=== PATIENT | male | born 1945 | race Caucasian/White ===

== ENCOUNTER 2017-03-08 04:45 | Emergency (ER) | payer MEDICARE, BC ==
--- NOTE | 2017-03-08 04:57 | EDM.PDOC ---
ED HPI GENERAL MEDICAL PROBLEM - General Chief Complaint: Respiratory Problem Stated Complaint: Respiratory distress Time Seen by Provider: 03/08/17 04:45 Source of Information: Reports: Patient, EMS Notes Reviewed, Family, RN, RN Notes Reviewed History Limitations: Reports: No Limitations - History of Present Illness INITIAL COMMENTS - FREE TEXT/NARRATIVE: Patient is brought to the emergency room at [facility] via EMS for worsening shortness of breath. The patient's symptoms began last evening and have progressively gotten worse. The patient awoke about an hour and a half ago and could not catch his breath, therefore EMS was called. The patient arrived on 8 L of oxygen satting in the low 90s. According to the EMS when they arrived the patient's oxygen saturation was in the low 70s. The patient has a long- standing history of COPD exacerbations. The patient states that he feels very nauseated and sick to his stomach. The patient denies any diarrhea. The patient states he's had a productive cough over the past couple of days. The patient states he feels very cold. 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 - Related Data Allergies Allergy/AdvReac Type Severity Reaction Status Date / Time hydromorphone HCl Allergy Cannot Verified 03/08/17 04:54 [From Dilaudid] Remember oxycodone HCl Allergy Cannot Verified 03/08/17 04:54 [From OxyContin] Remember pentazocine lactate AdvReac Nausea and Verified 03/08/17 04:54 [From Talwin] Vomiting tramadol HCl [From Ultram] AdvReac Delusions Verified 03/08/17 04:54 Home Meds: Home Meds Albuterol Sulfate [Albuterol Sulfate HFA] 1 - 2 puff IH Q4H PRN 03/11/14 [ History] Clobetasol [Clobetasol Propionate 0.05%] 45 gm TOP BID PRN 03/11/14 [History] Cyanocobalamin (Vitamin B-12) [Vitamin B-12] 1,000 mcg IM Q30D 03/11/14 [History ] Fluticasone/Salmeterol [Advair 250-50 Diskus] 1 puff INH BID 03/11/14 [History] Ibuprofen [Advil] 200 mg PO PRN 03/11/14 [History] Magnesium Gluconate 3,000 gm MC DAILY 03/11/14 [History] Omeprazole [Prilosec] 20 mg PO BID PRN 03/11/14 [History] Tiotropium [Spiriva] 18 mcg INH DAILY 03/11/14 [History] aMILoride [Midamor] 5 mg PO DAILY 03/11/14 [History] predniSONE 20 mg PO DAILY PRN 03/11/14 [History] traZODone 50 mg PO BEDTIME 03/11/14 [History] Social & Family History - Tobacco Use Smoking Status *Q: Never Smoker Years of Tobacco use: 40 Used Tobacco, but Quit: Yes Month Tobacco Last Used: 7 Second Hand Smoke Exposure: Yes - Alcohol Use Days Per Week of Alcohol Use: 1 Number of Drinks Per Day: 1 Total Drinks Per Week: 1 - Recreational Drug Use Recreational Drug Use: No ED ROS GENERAL - Review of Systems Review Of Systems: See Below Constitutional: Reports: Fever, Chills, Weakness HEENT: Reports: No Symptoms Respiratory: Reports: Shortness of Breath, Cough, Sputum. Denies: Hemoptysis Cardiovascular: Reports: Chest Pain, Dyspnea on Exertion. Denies: Palpitations GI/Abdominal: Reports: Nausea, Vomiting. Denies: Abdominal Pain, Diarrhea Skin: Reports: No Symptoms Neurological: Reports: No Symptoms ED EXAM, GENERAL - Physical Exam Exam: See Below Exam Limited By: No Limitations General Appearance: Alert, Anxious, Thin, Cachetic Respiratory/Chest: Respiratory Distress, Decreased Breath Sounds, Prolonged Expiration, Other (on CPAP) Cardiovascular: Normal Peripheral Pulses, No Edema, Tachycardia Peripheral Pulses: 2+: Radial (L), Radial (R) GI/Abdominal: Soft, Non-Tender, Abnormal Bowel Sounds (Hypoactive) Neurological: Alert, Oriented Psychiatric: Anxious Skin Exam: Dry, Intact, No Rash, Cool, Pallor EKG INTERPRETATION EKG Date: 03/08/17 Time: 06:10 Rhythm: NSR Rate (Beats/Min): 103 [place]: Other (Indeterminate axis) P-Wave: Present QRS: RBBB ST-T: Normal QT: Normal SC/PQ Interval: 0.14 Comparison: No Change EKG Interpretation Comments: 1. Sinus Tachycardia with frequent supraventricular premature complexes 2. Indeterminate axis 3. Incomplete RBBB Course - Vital Signs Last Recorded V/S: Last Vital Signs Temp 37.3 C 03/08/17 04:50 Pulse 124 H 03/08/17 04:50 Resp 30 H 03/08/17 04:50 BP 188/118 H 03/08/17 04:50 Pulse Ox 84 L 03/08/17 04:50 - Orders/Labs/Meds Orders: Active Orders 24 hr Category Date Time Status BIPAP Adult [RT BiPAP/CPAP] [RC] ASDIRECTED Care 03/08/17 05:47 Active EKG 12 Lead [EKG Documentation Completion] [RC] STAT Care 03/08/17 05:05 Ordered Insert Angulo Catheter [Insert Urinary Catheter] [OM.PC] Care 03/08/17 06:00 Ordered Q24H Urinary Catheter Assessment [RC] ASDIRECTED Care 03/08/17 05:59 Active Chest 1V Frontal [CR] Stat Exams 03/08/17 04:57 Taken CULTURE BLOOD [BC] Stat Lab 03/08/17 05:23 Results CULTURE BLOOD [BC] Stat Lab 03/08/17 05:30 Results Levofloxacin/Dextrose 5%-Water [Levaquin in D5W 750 MG/ Med 03/08/17 05:28 Active 150 ML] 750 mg Premix Bag 1 bag IV ONETIME Sodium Chloride 0.9% [Saline Flush] Med 03/08/17 05:00 Active 10 ml FLUSH ASDIRECTED PRN Blood Culture x2 Reflex Set [OM.PC] Stat Oth 03/08/17 04:58 Ordered Peripheral IV Insertion Adult [OM.PC] Routine Oth 03/08/17 05:00 Ordered Medication Orders Levofloxacin/Dextrose 750 mg/ (Premix) 150 mls @ 100 mls/hr IV ONETIME ONE Stop: 03/08/17 06:57 Last Admin: 03/08/17 05:41 Dose: 100 mls/hr Sodium Chloride (Saline Flush) 10 ml FLUSH ASDIRECTED PRN PRN Reason: Keep Vein Open Labs: Laboratory Tests 03/08/17 03/08/17 03/08/17 Range/Units 05:30 05:30 05:30 WBC 4.4 (4.0-10.0) x10^3/uL RBC 4.45 L (4.5-6.0) x10^6/uL Hgb 14.0 (14.0-18.0) g/dL Hct 43.7 (40.0-52.0) % MCV 98.2 H (78.0-93.0) fL MCH 31.5 (26.0-32.0) pg MCHC 32.0 (32.0-36.0) g/dL RDW Coeff of Aren 14.3 (10.0-15.0) % Plt Count 123 L (130-400) x10^3/uL Add Manual Diff Yes Neutrophils % (Manual) 77 (50-80) % Band Neutrophils % 7 H (0-6) % Lymphocytes % (Manual) 4 L (25-50) % Monocytes % (Manual) 6 (2-11) % Eosinophils % (Manual) 4 (0-4) % Basophils % (Manual) 1 (0-1) % Metamyelocytes % 1 H (0) % Toxic Granulation 2+ moderate H Platelet Estimate Decreased L Giant Platelets Rare H Polychromasia Rare POC ABG pH (7.35-7.45) POC ABG pCO2 (35-45) mmHG POC ABG pO2 (80-105) mmHG POC ABG HCO3 (22-26) mmol/L POC ABG Total CO2 (23-27) mmol/L POC ABG O2 Sat (95-98) % POC ABG Base Excess (-2-3) mmol/L POC FiO2 Sodium 138 (136-145) mmol/L Potassium 3.6 (3.5-5.1) mmol/L Chloride 101 (98-107) mmol/L Carbon Dioxide 35 H (21-32) mmol/L BUN 15 (7-18) mg/dL Creatinine 1.3 (0.70-1.30) mg/dL Est Cr Clr Drug Dosing TNP Estimated GFR (MDRD) 55 Glucose 110 H (74-106) mg/dL Lactic Acid 1.0 (0.4-2.0) mmol/L Calcium 8.1 L (8.5-10.1) mg/dL Corrected Calcium 8.58 (8.5-10.1) mg/dL Total Bilirubin 0.6 (0.2-1.0) mg/dL AST 24 (15-37) U/L ALT 25 (16-63) U/L Alkaline Phosphatase 70 (46-116) U/L Creatine Kinase (39-308) U/L Creatine Kinase Index (0.0-4.0) % CK-MB (CK-2) (0.0-3.6) ng/mL Troponin I (<=0.056) ng/mL C-Reactive Protein 0.4 (<=0.9) mg/dL Total Protein 7.1 (6.4-8.2) g/dL Albumin 3.4 (3.4-5.0) g/dL Globulin 3.7 Albumin/Globulin Ratio 0.92 POC Result Comm Urine Color (YELLOW) Urine Appearance (CLEAR) Urine pH (5.0-8.0) Ur Specific [place] Urine Protein (NEGATIVE) mg/dL Urine Glucose (UA) (NEGATIVE) mg/dL Urine Ketones (NEGATIVE) mg/dL Urine Occult Blood (NEGATIVE) Urine Nitrite (NEGATIVE) Urine Bilirubin (NEGATIVE) Urine Urobilinogen (0.2) EU/dL Ur Leukocyte Esterase (NEGATIVE) Urine RBC (NOT SEEN) /HPF Urine WBC (NOT SEEN) /HPF Ur Squamous Epith Cells (NEGATIVE) /HPF Urine Bacteria (NEGATIVE) /HPF Urine Mucus (NEGATIVE) /LPF 03/08/17 03/08/17 03/08/17 Range/Units 05:30 05:49 06:22 WBC (4.0-10.0) x10^3/uL RBC (4.5-6.0) x10^6/uL Hgb (14.0-18.0) g/dL Hct (40.0-52.0) % MCV (78.0-93.0) fL MCH (26.0-32.0) pg MCHC (32.0-36.0) g/dL RDW Coeff of Aren (10.0-15.0) % Plt Count (130-400) x10^3/uL Add Manual Diff Neutrophils % (Manual) (50-80) % Band Neutrophils % (0-6) % Lymphocytes % (Manual) (25-50) % Monocytes % (Manual) (2-11) % Eosinophils % (Manual) (0-4) % Basophils % (Manual) (0-1) % Metamyelocytes % (0) % Toxic Granulation Platelet Estimate Giant Platelets Polychromasia POC ABG pH 7.288 L* (7.35-7.45) POC ABG pCO2 68 H* (35-45) mmHG POC ABG pO2 85 (80-105) mmHG POC ABG HCO3 32 H (22-26) mmol/L POC ABG Total CO2 34 H (23-27) mmol/L POC ABG O2 Sat 95 (95-98) % POC ABG Base Excess 6 H (-2-3) mmol/L POC FiO2 0.52 Sodium (136-145) mmol/L Potassium (3.5-5.1) mmol/L Chloride (98-107) mmol/L Carbon Dioxide (21-32) mmol/L BUN (7-18) mg/dL Creatinine (0.70-1.30) mg/dL Est Cr Clr Drug Dosing Estimated GFR (MDRD) Glucose (74-106) mg/dL Lactic Acid (0.4-2.0) mmol/L Calcium (8.5-10.1) mg/dL Corrected Calcium (8.5-10.1) mg/dL Total Bilirubin (0.2-1.0) mg/dL AST (15-37) U/L ALT (16-63) U/L Alkaline Phosphatase (46-116) U/L Creatine Kinase 109 (39-308) U/L Creatine Kinase Index 1.6 (0.0-4.0) % CK-MB (CK-2) 1.7 (0.0-3.6) ng/mL Troponin I < 0.017 (<=0.056) ng/mL C-Reactive Protein (<=0.9) mg/dL Total Protein (6.4-8.2) g/dL Albumin (3.4-5.0) g/dL Globulin Albumin/Globulin Ratio POC Result Comm Called critical res Urine Color Light yellow (YELLOW) Urine Appearance Clear (CLEAR) Urine pH 5.5 (5.0-8.0) Ur Specific [place] 1.015 Urine Protein Negative (NEGATIVE) mg/dL Urine Glucose (UA) Negative (NEGATIVE) mg/dL Urine Ketones Negative (NEGATIVE) mg/dL Urine Occult Blood Negative (NEGATIVE) Urine Nitrite Negative (NEGATIVE) Urine Bilirubin Negative (NEGATIVE) Urine Urobilinogen 0.2 (0.2) EU/dL Ur Leukocyte Esterase Negative (NEGATIVE) Urine RBC 0-5 (NOT SEEN) /HPF Urine WBC 0-5 (NOT SEEN) /HPF Ur Squamous Epith Cells Rare (NEGATIVE) /HPF Urine Bacteria Not seen (NEGATIVE) /HPF Urine Mucus Not seen (NEGATIVE) /LPF Meds: Medications Generic Name Dose Route Start Last Admin Trade Name Freq PRN Reason Stop Dose Admin Levofloxacin/Dextrose 750 mg/ 150 mls @ 100 mls/hr 03/08/17 05:28 03/08/17 05 :41 Premix IV 03/08/17 06:57 100 mls/hr ONETIME ONE Administration Sodium Chloride 10 ml 03/08/17 05:00 Saline Flush FLUSH ASDIRECTED PRN Keep Vein Open Discontinued Medications Generic Name Dose Route Start Last Admin Trade Name Freq PRN Reason Stop Dose Admin Sodium Chloride 1,000 mls @ 999 mls/hr 03/08/17 05:00 03/08/17 05:20 Normal Saline IV 03/08/17 06:00 999 mls/hr ONETIME ONE Administration Azithromycin 500 mg/ Sodium 250 mls @ 250 mls/hr 03/08/17 05:27 Chloride IV 03/08/17 06:26 ONETIME ONE Levalbuterol HCl 1.25 mg 03/08/17 05:00 03/08/17 05:13 Xopenex NEB 03/08/17 05:01 1.25 mg ONETIME ONE Administration Lorazepam 1 mg 03/08/17 05:08 Ativan IVPUSH 03/08/17 05:09 ONETIME ONE Methylprednisolone Sodium Succinate 125 mg 03/08/17 05:00 03/08/17 05:25 Solu-Medrol IVPUSH 03/08/17 05:01 125 mg ONETIME ONE Administration Ondansetron HCl 4 mg 03/08/17 05:10 03/08/17 05:30 Zofran IVPUSH 03/08/17 05:11 4 mg ONETIME ONE Administration - Radiology Interpretation Free Text/Narrative:: CXR: New upper right lobe infiltrate consistent with pneumonia. See scanned report in EMR. Departure - Departure Time of Disposition: 06:46 Disposition: DC/Tfer to Acute Hospital 02 Clinical Impression: COPD with exacerbation Pneumonia Qualifiers: Pneumonia type: due to unspecified organism Laterality: right Lung location: upper lobe of lung Qualified Code(s): J18.1 - Lobar pneumonia, unspecified organism - Discharge Information Forms: Interfacility Transfer EMTALA ED Communication - ED Communication Date/Time Date: 03/08/17 Time Called: 06:39 - Discussed Case With (1) Discussed Case With (1): Admitting Provider (Dr. Laureano, Hospitalist [place]) - Conversation Summary Admitting Provider Agreed to Patient's Admission: Yes Patient Aware of Amendments fo Care Plan: Yes Summary Comment: Case discussed with Dr. Laureano. Patient will be transferred to [facility] for further care. Full report given. - Problem List Review Problem List Initiated/Reviewed/Updated: Yes - My Orders Last 24 Hours: My Active Orders 03/08/17 04:57 Chest 1V Frontal [CR] Stat 03/08/17 04:58 Blood Culture x2 Reflex Set [OM.PC] Stat 03/08/17 05:00 Sodium Chloride 0.9% [Saline Flush] 10 ml FLUSH ASDIRECTED PRN Peripheral IV Insertion Adult [OM.PC] Routine 03/08/17 05:05 EKG 12 Lead [EKG Documentation Completion] [RC] STAT 03/08/17 05:23 CULTURE BLOOD [BC] Stat 03/08/17 05:28 Levofloxacin/Dextrose 5%-Water [Levaquin in D5W 750 MG/150 ML] 750 mg Premix Bag 1 bag IV ONETIME 03/08/17 05:30 CULTURE BLOOD [BC] Stat 03/08/17 05:47 BIPAP Adult [RT BiPAP/CPAP] [RC] ASDIRECTED 03/08/17 05:59 Urinary Catheter Assessment [RC] ASDIRECTED 03/08/17 06:00 Insert Angulo Catheter [Insert Urinary Catheter] [OM.PC] Q24H - Assessment/Plan Last 24 Hours: My Active Orders 03/08/17 04:57 Chest 1V Frontal [CR] Stat 03/08/17 04:58 Blood Culture x2 Reflex Set [OM.PC] Stat 03/08/17 05:00 Sodium Chloride 0.9% [Saline Flush] 10 ml FLUSH ASDIRECTED PRN Peripheral IV Insertion Adult [OM.PC] Routine 03/08/17 05:05 EKG 12 Lead [EKG Documentation Completion] [RC] STAT 03/08/17 05:23 CULTURE BLOOD [BC] Stat 03/08/17 05:28 Levofloxacin/Dextrose 5%-Water [Levaquin in D5W 750 MG/150 ML] 750 mg Premix Bag 1 bag IV ONETIME 03/08/17 05:30 CULTURE BLOOD [BC] Stat 03/08/17 05:47 BIPAP Adult [RT BiPAP/CPAP] [RC] ASDIRECTED 03/08/17 05:59 Urinary Catheter Assessment [RC] ASDIRECTED 03/08/17 06:00 Insert Angulo Catheter [Insert Urinary Catheter] [OM.PC] Q24H
[2017-03-08] MEDS ORDERED: Sodium Chloride 0.9% 10 ML Syringe FLUSH PRN (05:00)
[2017-03-08] MEDS ORDERED: Levalbuterol HCl 1.25 MG/0.5 ML Neb NEB ONE (05:00)
[2017-03-08] MEDS ORDERED: Sodium Chloride 0.9% 1,000 ML IV ONE (05:00)
[2017-03-08] MEDS ORDERED: methylPREDNISolone Sodium Succinate 125 MG/2 ML SDV IVPUSH ONE (05:00)
[2017-03-08] MEDS ORDERED: LORazepam 2 MG/ML SDV IVPUSH ONE (05:08)
[2017-03-08] MEDS ORDERED: Ondansetron 4 MG/2 ML SDV IVPUSH ONE (05:10)
[2017-03-08] MEDS ORDERED: Azithromycin 500 MG in Sodium Chloride 0.9% 250 ML IV ONE (05:27)
[2017-03-08] MEDS ORDERED: Levofloxacin/Dextrose 5%-Water 750 MG in Premix Bag 1 BAG IV ONE (05:28)
[2017-03-08 06:30] LABS: CHLORIDE,CL 101 mmol/L (98-107); SODIUM,NA 138 mmol/L (136-145)
== END 2017-03-08 07:42 | disposition short-term general hospital (02) ==
LOC: VM.ED 04:45
DX: J44.1 Chronic obstructive pulmonary disease with (acute) exacerbation (principal); J18.9 Pneumonia, unspecified organism; Z87.891 Personal history of nicotine dependence; Z79.899 Other long term (current) drug therapy; Z88.5 Allergy status to narcotic agent; Z88.6 Allergy status to analgesic agent; Z88.8 Allergy status to other drugs, medicaments and biological substances
CPT/HCPCS: 36415; 36600; 51702; 71010; 80053; 81001; 82550; 82553; 82803; 83605; 84484; 85025; 86140; 87040; 93005; 94640; 94660; 96360; 96365; 96366; 96375; 99291; 99292; J1956; J2405; J2930; J7030; 93010; 99284-GF

== ENCOUNTER 2018-09-18 17:24 | Inpatient (IN) | payer MEDICARE, BC ==
[2018-09-18] MEDS ORDERED: methylPREDNISolone Sodium Succinate 125 MG/2 ML SDV IV ONE (17:31)
[2018-09-18] MEDS ORDERED: Albuterol/Ipratropium 3.0-0.5 MG/3 ML Neb Soln NEB ONE (17:31)
--- NOTE | 2018-09-18 17:50 | EDM.PDOC ---
ED HPI GENERAL MEDICAL PROBLEM - General Chief Complaint: Respiratory Problem Time Seen by Provider: 09/18/18 17:35 Source of Information: Reports: Patient History Limitations: Reports: No Limitations - History of Present Illness INITIAL COMMENTS - FREE TEXT/NARRATIVE: Pt. presents to ER with complaints of severe respiratory distress. Pt. was seen in clinic yesterday and states that he was feeling fine. He started to develop some cough and increased work of breathing early this AM. He is on O2 per NC at 4Lmin. at home. He has a nebulizer machine but has not been using it. He has a longstanding history of end-stage COPD and is a code 2. He refuses transfer to tertiary care facility. Pt. was severely dyspneic and was unable to answer many questions. His was at work and the patient was home alone all day, so the specifics of the start if this illness are unknown at this point. Pt. only complaints are that of trouble breathing, nausea, and vomiting. Onset Date: 09/18/18 - Related Data Allergies Allergy/AdvReac Type Severity Reaction Status Date / Time hydromorphone HCl Allergy Cannot Verified 03/08/17 04:54 [From Dilaudid] Remember oxycodone HCl Allergy Cannot Verified 03/08/17 04:54 [From OxyContin] Remember pentazocine lactate AdvReac Nausea and Verified 03/08/17 04:54 [From Talwin] Vomiting tramadol HCl [From Ultram] AdvReac Delusions Verified 03/08/17 04:54 Home Meds: Home Meds Albuterol Sulfate [Albuterol Sulfate HFA] 1 - 2 puff IH Q4H PRN 03/11/14 [ History] Clobetasol [Clobetasol Propionate 0.05%] 45 gm TOP BID PRN 03/11/14 [History] Cyanocobalamin (Vitamin B-12) [Vitamin B-12] 1,000 mcg IM Q30D 03/11/14 [History ] Fluticasone/Salmeterol [Advair 250-50 Diskus] 1 puff INH BID 03/11/14 [History] Ibuprofen [Advil] 200 mg PO PRN 03/11/14 [History] Magnesium Gluconate 3,000 gm MC DAILY 03/11/14 [History] Omeprazole [Prilosec] 20 mg PO BID PRN 03/11/14 [History] Tiotropium [Spiriva] 18 mcg INH DAILY 03/11/14 [History] aMILoride [Midamor] 5 mg PO DAILY 03/11/14 [History] predniSONE 20 mg PO DAILY PRN 03/11/14 [History] traZODone 50 mg PO BEDTIME 03/11/14 [History] Past Medical History Respiratory History: Reports: COPD Gastrointestinal History: Reports: GERD Endocrine/Metabolic History: Reports: Other (See Below) Other Endocrine/Metabolic History: Chronic low magnesium ED ROS GENERAL - Review of Systems Review Of Systems: See Below Constitutional: Reports: No Symptoms HEENT: Reports: No Symptoms Respiratory: Reports: Shortness of Breath, Wheezing, Cough, Sputum (yellowish) Cardiovascular: Reports: No Symptoms, Dyspnea on Exertion. Denies: Chest Pain, Edema Endocrine: Reports: No Symptoms GI/Abdominal: Reports: No Symptoms : Reports: No Symptoms Musculoskeletal: Reports: No Symptoms Skin: Reports: No Symptoms Neurological: Reports: No Symptoms Psychiatric: Reports: No Symptoms Hematologic/Lymphatic: Reports: No Symptoms Immunologic: Reports: No Symptoms ED EXAM, GENERAL - Physical Exam Exam: See Below Exam Limited By: No Limitations General Appearance: Alert, WD/WN, No Apparent Distress Eye Exam: Bilateral Eye: EOMI, Normal Fundi, Normal Inspection, PERRL Throat/Mouth: No Airway Compromise, Perioral Cyanosis Head: Atraumatic, Normocephalic Neck: Normal Inspection, Supple, Non-Tender, Full Range of Motion Respiratory/Chest: Respiratory Distress, Decreased Breath Sounds, Wheezing Cardiovascular: Normal Peripheral Pulses, Regular Rate, Rhythm, No Edema, No Gallop, No JVD, No Murmur, No Rub GI/Abdominal: Normal Bowel Sounds, Soft, Non-Tender, No Organomegaly, No Distention, No Mass (Male) Exam: Deferred Rectal (Males) Exam: Deferred Course - Vital Signs Last Recorded V/S: Last Vital Signs Temp 36.8 C 09/18/18 17:33 Pulse 90 09/18/18 17:33 Resp 32 H 09/18/18 17:33 BP 131/85 09/18/18 17:33 Pulse Ox 66 L 09/18/18 17:33 - Orders/Labs/Meds Orders: Active Orders 24 hr Category Date Time Status Patient Status [ADT] Routine ADT 09/18/18 18:51 Ordered EKG Documentation Completion [RC] STAT Care 09/18/18 17:28 Active RT Aerosol Therapy [RC] ASDIRECTED Care 09/18/18 17:31 Active CULTURE BLOOD [BC] Stat Lab 09/18/18 17:40 Results CULTURE BLOOD [BC] Stat Lab 09/18/18 17:48 Results Azithromycin [Zithromax] 500 mg Med 09/18/18 18:02 Active Sodium Chloride 0.9% [Normal Saline] 250 ml IV STAT Blood Culture x2 Reflex Set [OM.PC] Stat Oth 09/18/18 17:28 Ordered Medication Orders Azithromycin 500 mg/ Sodium (Chloride) 250 mls @ 250 mls/hr IV STAT ONE Stop: 09/18/18 19:01 Last Admin: 09/18/18 18:32 Dose: 250 mls/hr Labs: Laboratory Tests 09/18/18 09/18/18 09/18/18 Range/Units 17:48 17:48 17:48 WBC 10.0 (4.0-10.0) x10^3/uL RBC 4.87 (4.5-6.0) x10^6/uL Hgb 15.5 D (14.0-18.0) g/dL Hct 48.5 (40.0-52.0) % MCV 99.6 H (78.0-93.0) fL MCH 31.8 (26.0-32.0) pg MCHC 32.0 (32.0-36.0) g/dL RDW Coeff of Aren 13.8 (10.0-15.0) % Plt Count 198 D (130-400) x10^3/uL Neut % (Auto) 87.2 H (50.0-80.0) % Lymph % (Auto) 8.0 L (25.0-50.0) % [place] % (Auto) 3.3 (2.0-11.0) % Eos % (Auto) 1.2 (0.0-4.0) % Baso % (Auto) 0.3 (0.2-1.2) % PT 10.7 (10.0-12.8) SEC INR 0.9 L (2.0-3.5) POC ABG pH (7.35-7.45) POC ABG pCO2 (35-45) mmHG POC ABG pO2 (80-105) mmHG POC ABG HCO3 (22-26) mmol/L POC ABG Total CO2 (23-27) mmol/L POC ABG O2 Sat (95-98) % POC ABG Base Excess (-2-3) mmol/L O2 Delivery Device Sodium 144 (136-145) mmol/L Potassium 3.5 (3.5-5.1) mmol/L Chloride 101 (98-107) mmol/L Carbon Dioxide 35 H (21-32) mmol/L Anion Gap 11.5 (10-20) mmol/L BUN 14 (7-18) mg/dL Creatinine 1.1 (0.70-1.30) mg/dL Est Cr Clr Drug Dosing TNP Estimated GFR (MDRD) > 60 Glucose 128 H (74-106) mg/dL Lactic Acid (0.4-2.0) mmol/L Calcium 9.7 D (8.5-10.1) mg/dL Corrected Calcium 10.02 (8.5-10.1) mg/dL Phosphorus 2.4 L (2.6-4.7) mg/dL Magnesium 1.6 L (1.8-2.4) mg/dL Total Bilirubin 1.0 (0.2-1.0) mg/dL AST 70 H (15-37) U/L ALT 75 H (16-63) U/L Alkaline Phosphatase 96 (46-116) U/L POC Troponin I (0.00-0.08) ng/mL C-Reactive Protein 1.9 H (<=0.9) mg/dL NT-Pro-B Natriuret Pep 154 H (<=125) pg/mL Total Protein 8.2 (6.4-8.2) g/dL Albumin 3.6 (3.4-5.0) g/dL Globulin 4.6 Albumin/Globulin Ratio 0.78 09/18/18 09/18/18 09/18/18 Range/Units 17:48 18:12 18:16 WBC (4.0-10.0) x10^3/uL RBC (4.5-6.0) x10^6/uL Hgb (14.0-18.0) g/dL Hct (40.0-52.0) % MCV (78.0-93.0) fL MCH (26.0-32.0) pg MCHC (32.0-36.0) g/dL RDW Coeff of Aren (10.0-15.0) % Plt Count (130-400) x10^3/uL Neut % (Auto) (50.0-80.0) % Lymph % (Auto) (25.0-50.0) % [place] % (Auto) (2.0-11.0) % Eos % (Auto) (0.0-4.0) % Baso % (Auto) (0.2-1.2) % PT (10.0-12.8) SEC INR (2.0-3.5) POC ABG pH 7.344 L (7.35-7.45) POC ABG pCO2 58 H (35-45) mmHG POC ABG pO2 77 L (80-105) mmHG POC ABG HCO3 32 H (22-26) mmol/L POC ABG Total CO2 33 H (23-27) mmol/L POC ABG O2 Sat 94 L (95-98) % POC ABG Base Excess 6 H (-2-3) mmol/L O2 Delivery Device Bipap Sodium (136-145) mmol/L Potassium (3.5-5.1) mmol/L Chloride (98-107) mmol/L Carbon Dioxide (21-32) mmol/L Anion Gap (10-20) mmol/L BUN (7-18) mg/dL Creatinine (0.70-1.30) mg/dL Est Cr Clr Drug Dosing Estimated GFR (MDRD) Glucose (74-106) mg/dL Lactic Acid 2.2 H* (0.4-2.0) mmol/L Calcium (8.5-10.1) mg/dL Corrected Calcium (8.5-10.1) mg/dL Phosphorus (2.6-4.7) mg/dL Magnesium (1.8-2.4) mg/dL Total Bilirubin (0.2-1.0) mg/dL AST (15-37) U/L ALT (16-63) U/L Alkaline Phosphatase (46-116) U/L POC Troponin I 0.00 (0.00-0.08) ng/mL C-Reactive Protein (<=0.9) mg/dL NT-Pro-B Natriuret Pep (<=125) pg/mL Total Protein (6.4-8.2) g/dL Albumin (3.4-5.0) g/dL Globulin Albumin/Globulin Ratio Meds: Medications Generic Name Dose Route Start Last Admin Trade Name Shannon PRN Reason Stop Dose Admin Azithromycin 500 mg/ Sodium 250 mls @ 250 mls/hr 09/18/18 18:02 09/18/18 18: 32 Chloride IV 09/18/18 19:01 250 mls/hr STAT ONE Administration Discontinued Medications Generic Name Dose Route Start Last Admin Trade Name Shannon PRN Reason Stop Dose Admin Albuterol/Ipratropium 3 ml 09/18/18 17:31 09/18/18 17:28 Duoneb 3.0-0.5 Mg/3 Ml NEB 09/18/18 17:32 3 ml ONETIME ONE Administration Ceftriaxone Sodium 2 gm 09/18/18 18:02 09/18/18 18:22 Rocephin IVPUSH 09/18/18 18:03 2 gm STAT ONE Administration Methylprednisolone Sodium Succinate 125 mg 09/18/18 17:31 09/18/18 17:52 Solu-Medrol IV 09/18/18 17:32 125 mg ONETIME ONE Administration Metoclopramide HCl 5 mg 09/18/18 18:54 Reglan IVPUSH 09/18/18 18:55 ONETIME ONE Ondansetron HCl 4 mg 09/18/18 18:10 09/18/18 18:25 Zofran IVPUSH 09/18/18 18:11 4 mg ONETIME ONE Administration - Radiology Interpretation Free Text/Narrative:: L sided infiltrates Departure - Departure Time of Disposition: 18:58 Disposition: DC/Tfer to Acute Hospital 02 Clinical Impression: Community acquired pneumonia - Discharge Information Referrals: Yasmine Garay DO [Primary Care Provider] - Forms: ED Department Discharge - Problem List Review Problem List Initiated/Reviewed/Updated: Yes - My Orders Last 24 Hours: My Active Orders 09/18/18 17:28 EKG Documentation Completion [RC] STAT Blood Culture x2 Reflex Set [OM.PC] Stat 09/18/18 17:31 RT Aerosol Therapy [RC] ASDIRECTED 09/18/18 17:40 CULTURE BLOOD [BC] Stat 09/18/18 17:48 CULTURE BLOOD [BC] Stat 09/18/18 18:02 Azithromycin [Zithromax] 500 mg Sodium Chloride 0.9% [Normal Saline] 250 ml IV STAT 09/18/18 18:51 Patient Status [ADT] Routine - Assessment/Plan Last 24 Hours: My Active Orders 09/18/18 17:28 EKG Documentation Completion [RC] STAT Blood Culture x2 Reflex Set [OM.PC] Stat 09/18/18 17:31 RT Aerosol Therapy [RC] ASDIRECTED 09/18/18 17:40 CULTURE BLOOD [BC] Stat 09/18/18 17:48 CULTURE BLOOD [BC] Stat 09/18/18 18:02 Azithromycin [Zithromax] 500 mg Sodium Chloride 0.9% [Normal Saline] 250 ml IV STAT 09/18/18 18:51 Patient Status [ADT] Routine Plan: Pt. will be admitted acutely. He is a code 2, no intubation, no CPR. Family is and patient are adamant that he not be transferred. Discussed findings with the patient and family. He was started on IV solu medrol in ER. He was given 2 gm of rocephin IV and 500mg azithromycin in ER as well. Pt. did vomit and complains of nausea. This was treated with IV zofran and he will be receiving IV reglan. He was briefly removed from CPAP but de-saturated into the low 80% range to this was continued at 50% FiO2.
[2018-09-18] MEDS ORDERED: cefTRIAXone 2 GM Vial IVPUSH ONE (18:02)
[2018-09-18] MEDS ORDERED: Azithromycin 500 MG in Sodium Chloride 0.9% 250 ML IV ONE (18:02)
[2018-09-18] MEDS ORDERED: Ondansetron 4 MG/2 ML SDV IVPUSH ONE (18:10)
--- NOTE | 2018-09-18 18:43 | CR ---
[id number] RAD/RAD Chest PA or AP 1V EXAM: SINGLE VIEW CHEST. INDICATION: RESPIRATORY FAILURE COMPARISON: CORRELATION IS MADE WITH THE EXAM OF 2016. FINDINGS: There is a left perihilar interstitial infiltrate that is rather extensive. There is underlying emphysema. The cardiomediastinal contour is stable. Old bilateral rib fractures are seen. IMPRESSION: RATHER EXTENSIVE LEFT-SIDED PNEUMONIA. Maykel Zamorano MD 09/18/18 [id number] Thank you for allowing us to participate in the care of your patient.
[2018-09-18 18:50] LABS: ANION GAP 11.5 mmol/L (10-20); CHLORIDE,CL 101 mmol/L (98-107); SODIUM,NA 144 mmol/L (136-145)
[2018-09-18] MEDS ORDERED: Metoclopramide 10 MG/2 ML SDV IVPUSH ONE (18:54)
[2018-09-18] MEDS ORDERED: Ondansetron 4 MG/2 ML SDV IV PRN (19:32)
[2018-09-18] MEDS ORDERED: Magnesium Sulfate/Water 2 GM in Premix Bag 1 BAG IV ONE (19:47)
[2018-09-18] MEDS ORDERED: guaiFENesin/Dextromethorphan 100-10 MG/5 ML Soln 10 ML Cup PO PRN (19:51)
[2018-09-18] MEDS: Enoxaparin 40 MG/0.4 ML Syringe SUBCUT SCH (19:53)
[2018-09-18] MEDS ORDERED: Albuterol 0.083% 2.5 MG/3 ML Neb Soln INH PRN (20:00)
[2018-09-18] MEDS ORDERED: Non-Formulary Medication 1 Each (Cyanocobalamin (Vitamin B-12) [Vitamin B-12] 1,000 MCG) IM SCH (20:00)
[2018-09-18] MEDS: Albuterol/Ipratropium 3.0-0.5 MG/3 ML Neb Soln NEB SCH (20:05)
[2018-09-18] MEDS: Pantoprazole 40 MG Vial IVPUSH SCH (20:05)
[2018-09-18] MEDS ORDERED: LORazepam 2 MG/ML SDV IVPUSH PRN (20:10)
[2018-09-18] MEDS ORDERED: Budesonide 0.5 MG/2 ML Neb Susp INH SCH (20:15)
[2018-09-18] MEDS: Indacaterol/Glycopyrrolate 1 EA Cap.W.Dev Kit of 6 IH SCH (20:18)
[2018-09-18] MEDS: Fluticasone-Salmeterol 113-14 MCG Powder Inhalant INH SCH (20:18)
[2018-09-18] MEDS: Dextrose 5%-0.9% NaCl with KCl 1,000 ML IV SCH (20:36)
[2018-09-19] MEDS ORDERED: methylPREDNISolone Sodium Succinate 125 MG/2 ML SDV IVPUSH SCH (01:00)
[2018-09-19] MEDS: Albuterol/Ipratropium 3.0-0.5 MG/3 ML Neb Soln NEB SCH ×4 (01:02→19:04)
[2018-09-19] MEDS: Sodium Chloride 0.9% 10 ML Syringe IV PRN ×8 (01:02→21:35)
[2018-09-19] MEDS ORDERED: Morphine 2 MG/ML Syringe IVPUSH ONE (01:20)
--- NOTE | 2018-09-19 03:05 | HP ---
CHIEF COMPLAINT: Respiratory distress. HISTORY OF PRESENT ILLNESS: The patient is a 73-year-old male with known COPD oxygen dependent, who had thrown up this morning, but did not feel short of breath until mid afternoon. He had contacted the clinic at about 4:15, however, phone call has not been returned. The patient came in by ambulance to the emergency room because of being quite short of breath. When he presented to the emergency room, his O2 saturations were in the 60s on 3 L so he was immediately placed on BiPAP, given a DuoNeb treatment, was seen by PAMELA Tafoya. To note, the patient normally doctors with Dr. Yasmine Garay. He had just been to the clinic previously and was feeling quite good. He was going to maybe start Trelegy inhaler when his current inhalers had run out. He did not have blood work done yesterday, but about a week ago his magnesium, which is chronically low came back at 1.6. The patient sometimes may forget taking his magnesium. He does have history of malabsorption magnesium due to his Crohn disease. The patient had been given Rocephin 2 g IV as well as Zithromax 500 mg IV and Solu- Medrol 125 mg IV in the emergency room. His O2 saturations did improve into the 90s with BiPAP on at FiO2 of 60%, it was reduced down to 50%. The patient did not want to be intubated if he could not breath nor did he want CPR done. His and daughter were present as well. MEDICATIONS: He is currently on his: 1. Albuterol 2 puffs every 4 hours as needed. 2. Spiriva Handihaler 18 mcg one capsule daily. 3. Breo Ellipta 200/25 one puff daily. 4. Prednisone 20 mg one pill daily. 5. Vitamin B12, 1000 mcg IM monthly. 6. Prilosec 20 mg two pills once a day. 7. DuoNeb every 6 hours. 8. Oxygen 4 L with activity and at night. 9. Magnesium gluconate 500 mg six pills daily. ALLERGIES: Dilaudid, OxyContin, Talwin, and Ultram. PAST MEDICAL HISTORY: The patient has a history of severe COPD. He has had a previous admission for aspiration pneumonia in 02/2017. He had initially been treated with Levaquin, but then switched to Rocephin and Flagyl. He was seen by Speech. The patient had severe hypomagnesemia related to his Crohn disease with malabsorption. He has had psoriasis. He has had chronic hypoxia where he takes oxygen with activity as well as at night. He has arthropathy and vitamin B12 deficiency. He has had depression, hearing loss. He has had hemorrhagic varicella, pneumonitis, history of peptic ulcer disease, insomnia, iron deficiency anemia, polymyalgia rheumatica, psoriasis, pulmonary nodule, senile osteopenia. He has had abdominal aortic aneurysm screen in 2010. He has had previous lungs screening. PAST SURGICAL HISTORY: He has had appendectomy, bowel resection with half of his colon resected in 1978 for Crohn disease and he has had a colostomy because of his Crohn disease. He has had cataract surgery, tonsillectomy. FAMILY MEDICAL HISTORY: Son had of suicide. Mother has had cancer. SOCIAL HISTORY: The patient has been on disability since 1983. He is . He is quite active with the ditlo. He is active with horseback riding. He had smoked a pack a day cigarettes for years until he quit in the past. Alcohol use is 10 cans of beer per week. No drug use. REVIEW OF SYSTEMS: He has always been slender. He does have psoriasis on his skin. He does have some joint achiness. He has had an upset stomach which is somewhat chronic for him. Does feel weak right now and short of breath. is present. Does not offer anything else for history. PHYSICAL EXAMINATION: Vital Signs: His temperature is 36.8, pulse 90, blood pressure 131/85, respiratory rate 32, had improved to 20, saturations are 92% on FiO2 of 50, BiPAP. Skin: Noted to be champagne, dusky, has bonilla stubble on his chin. He has thickened plaques on his elbow. General: The patient is somewhat weak. HEENT: His mouth was difficult to examine due to BiPAP being on. Conjunctivae clear. Heart: Tachycardic. Lungs: Have diminished breath sounds on bases. No wheezes or crackles appreciated. Abdomen: Scaphoid, soft. He has a colostomy bag. Extremities: Lower extremities are slender thin with no edema. Neurologic: Symmetrically weak. Psych: Psych pope, he is appropriate. Speech does recognize who I am. LABORATORY DATA: His laboratory data came back showing white blood cell count 10.0, hemoglobin 15.5, and platelets 198 with 87 segs, 8 lymphs. INR is 0.9, pH 7.34, pCO2 of 58, pO2 of 77, bicarb 32, saturations are 94% on BiPAP, base excess 6. Sodium is 144, potassium 3.5, chloride 101, carbon dioxide 35, anion gap 11.5, BUN 14, creatinine 1.1, GFR greater than 60, glucose is 128, lactic acid is 2.2, calcium is 9.7, phosphorus is 2.4. Bilious 1.0. AST is 70, ALT is 75, alkaline phosphatase 96, troponin was 0. CRP is 1.9. ProBNP is 154. Total protein 8.2, albumin 3.6. IMAGING STUDIES: His EKG showed sinus tachycardia with frequent PVCs, right ventricular conduction delay, moderate ST depression. Abnormal EKG. Chest x-ray shows COPD with left upper lobe infiltrate. IMPRESSION: 1. Respiratory distress. 2. Aspiration pneumonia. 3. Left upper lobe pneumonia. 4. Chronic obstructive pulmonary disease exacerbation. 5. Chronic hypoxemia. 6. Crohn disease. 7. Chronic hypomagnesemia. 8. Weakness. 9. Dyspepsia. 10.Crohn disease. PLAN: The patient will be admitted to acute care. Family did not wish transfer to a higher level of care and has selected do not resuscitate, do not intubate. He will be continued on Rocephin as well as Zithromax. We will place him on Lovenox for DVT prophylaxis. We will place him on IV Protonix. He will continue to receive IV Solu-Medrol. We will give him some IV fluids for fluid resuscitation. We will check a lipase level on patient. The patient may continue to deteriorate of his current health problems and possibly could pass away of his current exacerbation in light that he does not want intubation. We will also check serial troponins on the patient as well as repeat EKG in the morning as well as chest x-ray. Dr. Yasmine Garay will be made aware of patient's admission as well. GM09/18/2018 20:06:48 MODL: 09/19/2018 02:57:39 /[id number] JUSTINE
[2018-09-19] MEDS: Budesonide 0.5 MG/2 ML Neb Susp INH SCH ×2 (06:19→19:03)
[2018-09-19] MEDS: Indacaterol/Glycopyrrolate 1 EA Cap.W.Dev Kit of 6 IH SCH ×3 (06:29→19:41)
[2018-09-19] MEDS: Fluticasone-Salmeterol 113-14 MCG Powder Inhalant INH SCH (06:30)
[2018-09-19 07:17] LABS: ANION GAP 6.7 mmol/L (10-20); CHLORIDE,CL 100 mmol/L (98-107); SODIUM,NA 136 mmol/L (136-145)
[2018-09-19] MEDS: Magnesium Oxide 400 MG Tab PO SCH (07:44)
[2018-09-19] MEDS: Pantoprazole 40 MG Vial IVPUSH SCH ×2 (07:44→19:38)
[2018-09-19] MEDS: Morphine 2 MG/ML Syringe IVPUSH PRN ×2 (07:45→21:35)
[2018-09-19] MEDS ORDERED: Non-Formulary Medication 1 Each (Tiotropium [Spiriva Handihaler] 18 MCG) INH SCH (08:00)
[2018-09-19] MEDS ORDERED: Fluticasone-Salmeterol 113-14 MCG Powder Inhalant INH SCH (08:00)
[2018-09-19] MEDS: Arformoterol 15 MCG/2 ML Neb Soln NEB SCH ×2 (09:12→19:38)
[2018-09-19] MEDS: methylPREDNISolone Sodium Succinate 40 MG/1 ML SDV IVPUSH SCH ×2 (09:12→20:27)
[2018-09-19] MEDS: Dextrose 5%-0.9% NaCl with KCl 1,000 ML IV SCH ×2 (09:16→19:40)
--- NOTE | 2018-09-19 09:22 | CR ---
[id number] RAD/RAD Chest PA or AP 1V EXAM: SINGLE VIEW CHEST. INDICATION: FOLLOW-UP PNEUMONIA COMPARISON: CORRELATION IS MADE WITH YESTERDAY'S EXAM FINDINGS: The left-sided interstitial pattern remains about the same, or slightly increased. The right lung currently is overall clear. Surgical changes and/or chronic AC separation of the right shoulder are seen. IMPRESSION: NO IMPROVEMENT SINCE YESTERDAY. Maykel Zamorano MD 09/19/18 0920 Thank you for allowing us to participate in the care of your patient.
--- NOTE | 2018-09-19 09:28 | PN ---
Progress Note for [facility] Date: 09/19/2018 Room #: .217 SUBJECTIVE: Hospital day #2 on a 73-year-old, admitted with acute hypoxic respiratory failure last evening and came into the ER around 5:30 p.m. 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 He had been fatigued all day. He did not really notice when he started having breathing problems or coughing. He does have severe COPD and had been in the clinic the previous date and was feeling fine, but when his said when he came home that evening he just was tired and went to bed. There were no fever, no chills, no abdominal pain, but again he was vomiting even vomited in the ER. He does have a history of previous similar admission where he went to [place]. He was started on IV Solu-Medrol 125, Rocephin and azithromycin. He has been afebrile. He has been on BiPAP all night, but been off for the last 20 minutes. He has been up, eating, visiting on 5 L, maintaining O2 saturations at 92%. He had some tachycardia in the ER like 170s but on telemetry, he only had a few episodes of the 138 to 140, look like possibly just a short SVT. Currently, he is in a sinus rhythm. Overall, he is feeling better. He is actually talking about trying to go home today. He has been getting his nebs. He is normally on Spiriva and Breo or Advair type medications at home, but admits previously he has not always had time to use them. OBJECTIVE: Vital Signs: Objectively on exam, he has a temperature 97.4, pulse 64, blood pressure 129/77, respiratory rate 16, and O2 of 99% on 5 L. General: He is in no acute distress. Heart: Regular rate and rhythm without murmur. Lungs: Lungs sounds decreased with some faint crackles over the right base. Left lung decreased otherwise. Abdomen: Ostomy in place. Positive bowel sounds. Nontender. He has not had much output from the ostomy. Extremities: Warm and dry. No edema. He has some psoriasis changes. Mental Status: Alert and orientated x3. LABORATORY DATA: Lab work does show white count up slightly to 11.1, hemoglobin 13 and platelets 137. Sodium 136, potassium 3.7, chloride 100, bicarb 33, BUN 17, creatinine 1.3. Lactic which was down to 1.2, went up slightly to 2.7, glucose 224, magnesium 2.1, bilirubin 0.6, AST 34, ALT 52, alkaline phosphatase 61. CRP went up from 1.9 to 11.6, troponin negative, albumin 2.7. ASSESSMENT AND PLAN: 1. Acute on chronic hypoxic respiratory failure secondary to an episode of aspiration possibly chemical pneumonitis. 2. Possible aspiration pneumonia. 3. Chronic obstructive pulmonary disease exacerbation due to aspiration. 4. Crohn disease, stable. 5. Chronic hypomagnesemia. 6. Malnutrition. 7. Psoriasis. PLAN: At this point, the patient will continue on acute cares. I will change his Solu-Medrol over to 40 b.i.d. I will stop his Advair inhaler. He has already been ordered for Pulmicort. I will add some long-acting bronchodilator Brovana. We will continue with the Rocephin and Zithromax for now. We will repeat a chest x-ray if indicated. We will try to keep him off the BiPAP and just see how he does today. We will continue on scheduled and p.r.n. nebs. We will continue Lovenox for DVT prophylaxis. Repeat lab work tomorrow. JERO: 09/19/2018 08:57:00 MODL: 09/19/2018 09:21:31 /[id number]
[2018-09-19] MEDS ORDERED: Azithromycin 500 MG in Sodium Chloride 0.9% 250 ML IV SCH (18:00)
[2018-09-19] MEDS ORDERED: cefTRIAXone 2 GM Vial IVPUSH SCH (18:00)
[2018-09-19] MEDS ORDERED: Docusate Sodium 100 MG Cap PO PRN (19:28)
[2018-09-19] MEDS: Enoxaparin 40 MG/0.4 ML Syringe SUBCUT SCH (19:38)
[2018-09-20] MEDS: Albuterol/Ipratropium 3.0-0.5 MG/3 ML Neb Soln NEB SCH ×2 (00:46→06:17)
[2018-09-20] MEDS: Dextrose 5%-0.9% NaCl with KCl 1,000 ML IV SCH (04:04)
[2018-09-20] MEDS: Budesonide 0.5 MG/2 ML Neb Susp INH SCH (06:17)
[2018-09-20] MEDS: Arformoterol 15 MCG/2 ML Neb Soln NEB SCH (06:18)
[2018-09-20 07:00] LABS: CHLORIDE,CL 104 mmol/L (98-107); SODIUM,NA 142 mmol/L (136-145)
[2018-09-20 07:08] LABS: ANION GAP 9.9 mmol/L (10-20)
[2018-09-20] MEDS: Magnesium Oxide 400 MG Tab PO SCH (08:11)
[2018-09-20] MEDS: Indacaterol/Glycopyrrolate 1 EA Cap.W.Dev Kit of 6 IH SCH (08:12)
[2018-09-20] MEDS: Pantoprazole 40 MG Vial IVPUSH SCH (08:12)
[2018-09-20] MEDS ORDERED: Ondansetron 4 MG Tab.DIS PO PRN (09:01)
[2018-09-20] MEDS ORDERED: Metoclopramide 5 MG Tab PO ONE (09:20)
--- NOTE | 2018-09-20 11:01 | CR ---
[id number] RAD/RAD Abdomen 3V EXAM: RAD Abdomen 3V INDICATION: NAUSEA. COMPARISON: None. DISCUSSION: The stomach is distended with fluid and debris. No dilated loops of small bowel. No evidence of obstruction at this point. Interstitial changes seen throughout the lungs left greater than right. Blunting of the costophrenic angles. Surgical clips the right upper quadrant likely related to prior cholecystectomy. IMPRESSION: Marked distention of the stomach with fluid and debris. No evidence of obstruction at this time. Chaim Orellana DO 09/20/18 1100 Thank you for allowing us to participate in the care of your patient.
--- NOTE | 2018-09-20 11:34 | PCM.SN ---
- Free Text/Narrative Note: I forgot to add to his discharge summary that on d/c we repeated his CXR which did not show any worsening of the left lobe pneumonia but did show the interstitial changes seen through the left lung and also he had marked distention of the stomach with fluid and debris but no obstruction.
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
== END 2018-09-20 11:20 | disposition home or self-care (01) | DRG 177 ==
LOC: VM.ED 17:24 → VM.MS 18:51
PROVIDERS: ADMIT Family Medicine; ATTEND Internal Medicine
PROC: 5A09357 Assistance with Respiratory Ventilation, Less than 24 Consecutive Hours, Continuous Positive Airway Pressure (ICD-10-PCS; principal; 2018-09-18)
DX: J69.0 Pneumonitis due to inhalation of food and vomit (principal); J96.21 Acute and chronic respiratory failure with hypoxia; J44.1 Chronic obstructive pulmonary disease with (acute) exacerbation; E46 Unspecified protein-calorie malnutrition; K50.90 Crohn's disease, unspecified, without complications; F32.9 Major depressive disorder, single episode, unspecified; Z66 Do not resuscitate; H91.90 Unspecified hearing loss, unspecified ear; G47.00 Insomnia, unspecified; L40.9 Psoriasis, unspecified; K21.9 Gastro-esophageal reflux disease without esophagitis; M35.3 Polymyalgia rheumatica; R73.9 Hyperglycemia, unspecified; T38.0X5A Adverse effect of glucocorticoids and synthetic analogues, initial encounter; E83.42 Hypomagnesemia; R53.1 Weakness; Z90.49 Acquired absence of other specified parts of digestive tract; Z93.3 Colostomy status; Z98.49 Cataract extraction status, unspecified eye; Z87.11 Personal history of peptic ulcer disease; Z99.81 Dependence on supplemental oxygen; Z88.8 Allergy status to other drugs, medicaments and biological substances; Z79.899 Other long term (current) drug therapy; Z68.23 Body mass index [BMI] 23.0-23.9, adult; Z88.6 Allergy status to analgesic agent
CPT/HCPCS: 36415; 36600; 71045; 74022; 80048; 80053; 81001; 82803; 83605; 83690; 83735; 83880; 84100; 84484; 85007; 85025; 85027; 85610; 86140; 87040; 87070; 87077; 87186; 87205; 93005; 94640; 94660; 96365; 96375; 97162-GP; 99284-GF; 99285-25; A9270-GY; C9113; J0456; J0696; J1650; J2060; J2270; J2405; J2765; J2920; J2930; J3475; J3480; J7050; J7620-GY

== ENCOUNTER 2019-08-11 15:09 | Emergency (ER) | payer MEDICARE, BC ==
[2019-08-11] MEDS ORDERED: Sodium Chloride 0.9% 10 ML Syringe FLUSH PRN (15:14)
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
[2019-08-11] MEDS ORDERED: cefTRIAXone 1 GM Vial IVPUSH ONE (16:12)
[2019-08-11] MEDS ORDERED: methylPREDNISolone Sodium Succinate 125 MG/2 ML SDV IV ONE (16:12)
[2019-08-11 16:39] LABS: CHLORIDE,CL 98 mmol/L (98-107); SODIUM,NA 138 mmol/L (136-145)
[2019-08-11 16:40] LABS: ANION GAP 13.2 mmol/L (10-20)
[2019-08-11] MEDS ORDERED: Take Home: Doxycycline 100 MG Tab, 4 Tab Pack PO ONE (16:48)
--- NOTE | 2019-08-12 05:03 | EDM.PDOC ---
ED HPI GENERAL MEDICAL PROBLEM - General Chief Complaint: Respiratory Problem Time Seen by Provider: 08/11/19 15:20 Source of Information: Reports: Patient History Limitations: Reports: No Limitations - History of Present Illness INITIAL COMMENTS - FREE TEXT/NARRATIVE: PtMartha presents to ER with complaints of chest pain that he has been experiencing for a week. Pt. was hospitalized in [place] 1 week ago with esophageal impaction and underwent successful upper endoscopy to resolve this. He states that he has been experiencing sore throat, chest discomfort, and some shortness of breath since the incident. He states that he has been active and working. He states that the discomfort has not radiated into his jaw, arms, neck or back. Denies any diaphoresis. No nausea, vomiting or diarrhea. He has been eating and drinking and is able to swallow without any difficulty or discomfort. He states that he is always short of breath due to his COPD. He states that he feels he is having a flare-up and needs some antibiotics and prednisone. He states that he has been using his oxygen at home. Denies any bloody or dark stools. Onset Date: 08/04/19 Duration: Constant Location: Reports: Neck (sore throat since endoscopy), Chest Quality: Reports: Burning Severity: Moderate Associated Symptoms: Reports: Chest Pain, Shortness of Breath. Denies: Cough, Diaphoresis, Fever/Chills, Nausea/Vomiting, Rash, Syncope, Weakness Throat Pain Score (Numeric/FACES): 9 - Related Data Allergies Allergy/AdvReac Type Severity Reaction Status Date / Time hydromorphone HCl Allergy Cannot Verified 09/18/18 19:05 [From Dilaudid] Remember oxycodone HCl Allergy Cannot Verified 09/18/18 19:05 [From OxyContin] Remember pentazocine lactate AdvReac Nausea and Verified 09/18/18 19:05 [From Talwin] Vomiting tramadol HCl [From Ultram] AdvReac Delusions Verified 09/18/18 19:05 Home Meds: Home Meds Cyanocobalamin (Vitamin B-12) [Vitamin B-12] 1,000 mcg IM Q30D 03/11/14 [History ] Magnesium Gluconate 3,000 gm MC DAILY 03/11/14 [History] Omeprazole [Prilosec] 40 mg PO DAILY 03/11/14 [History] Tiotropium [Spiriva HandiHaler] 18 mcg INH DAILY 03/11/14 [History] Albuterol [Ventolin HFA] 1 puff INH Q4HR PRN 09/18/18 [History] Fluticasone/Vilanterol [Breo Ellipta 200-25 MCG Inhalation Kit] 1 each IH DAILY 09/18/18 [History] Non-Formulary Medication [NF Drug] 1 puff INH DAILY 09/18/18 [History] Albuterol [Proventil Neb Soln] 2.5 mg INH Q4H PRN #90 neb 09/20/18 [Rx] Amoxicillin/Clavulanate K [Augmentin 875-125 MG] 1 tab PO BID #10 tablet [Rx] Ondansetron [Zofran ODT] 4 mg PO Q6H PRN #20 tab.dis 09/20/18 [Rx] predniSONE 20 mg PO DAILY #15 tablet 09/20/18 [Rx] Past Medical History HEENT History: Reports: Hard of Hearing, Other (See Below) Other HEENT History: Vitreous floaters Respiratory History: Reports: COPD Other Respiratory History: Pulmonary nodule. Hemorrhagic varicella pneumonitis. Oxygen dependent Gastrointestinal History: Reports: GERD Other Gastrointestinal History: Crohn's disease Musculoskeletal History: Reports: Other (See Below) Other Musculoskeletal History: Arthropathy Neurological History: Reports: Other (See Below) Other Neuro History: Insomnia. Polymyalgia rheumatica Psychiatric History: Reports: Depression Endocrine/Metabolic History: Reports: Other (See Below) Other Endocrine/Metabolic History: Chronic low magnesium Hematologic History: Reports: B12 Deficiency, Iron Deficiency Dermatologic History: Reports: Psoriasis - Infectious Disease History Infectious Disease History: Reports: Chicken Pox - Past Surgical History HEENT Surgical History: Reports: Cataract Surgery, Tonsillectomy GI Surgical History: Reports: Appendectomy, Other (See Below) Other GI Surgeries/Procedures: Colon resection x2 Social & Family History - Family History Family Medical History: Noncontributory - Tobacco Use Smoking Status *Q: Former Smoker Used Tobacco, but Quit: Yes Month/Year Tobacco Last Used: 10/2009 - Recreational Drug Use Recreational Drug Use: No ED ROS GENERAL - Review of Systems Review Of Systems: See Below Constitutional: Reports: No Symptoms HEENT: Reports: No Symptoms Respiratory: Reports: No Symptoms Cardiovascular: Reports: Chest Pain Endocrine: Reports: No Symptoms GI/Abdominal: Reports: No Symptoms. Denies: Abdominal Pain, Anorexia, Black Stool, Bloody Stool, Diarrhea, Decreased Appetite, Distension, Hematemesis, Hematochezia, Melena, Nausea, Vomiting : Reports: No Symptoms Musculoskeletal: Reports: No Symptoms Skin: Reports: No Symptoms Neurological: Reports: No Symptoms Psychiatric: Reports: No Symptoms Hematologic/Lymphatic: Reports: No Symptoms Immunologic: Reports: No Symptoms ED EXAM, GENERAL - Physical Exam Exam: See Below Exam Limited By: No Limitations General Appearance: Alert, WD/WN, No Apparent Distress Eye Exam: Bilateral Eye: EOMI, PERRL Nose: Normal Inspection, Normal Mucosa, No Blood Throat/Mouth: Normal Inspection, Normal Lips, Normal Teeth, Normal Oropharynx, Normal Voice, No Airway Compromise, Other (No oral trauma) Head: Atraumatic, Normocephalic Neck: Normal Inspection, Supple, Non-Tender, Full Range of Motion Respiratory/Chest: No Accessory Muscle Use, Decreased Breath Sounds, Wheezing Cardiovascular: Normal Peripheral Pulses, Regular Rate, Rhythm, No Edema, No Gallop, No JVD, No Murmur, No Rub Peripheral Pulses: 4+: Radial (L) GI/Abdominal: Normal Bowel Sounds, Soft, Non-Tender, No Organomegaly, No Distention, No Mass (Male) Exam: Deferred Rectal (Males) Exam: Deferred Back Exam: Normal Inspection, Full Range of Motion Neurological: Alert, Oriented, CN II-XII Intact, Normal Cognition, Normal Gait, Normal Reflexes, No Motor/Sensory Deficits Psychiatric: Normal Affect, Normal Mood Skin Exam: Warm, Dry, Intact, Normal Color, No Rash Lymphatic: No Adenopathy EKG INTERPRETATION Rhythm: NSR [place]: Normal P-Wave: Present QRS: Normal ST-T: Normal QT: Normal Course - Vital Signs Last Recorded V/S: Last Vital Signs Temp 38.1 C 08/11/19 15:20 Pulse 68 08/11/19 16:54 Resp 15 08/11/19 16:54 BP 109/47 L 08/11/19 16:54 Pulse Ox 98 08/11/19 16:54 - Orders/Labs/Meds Orders: Active Orders 24 hr Category Date Time Status EKG Documentation Completion [RC] STAT Care 08/11/19 15:14 Active CULTURE BLOOD [BC] Stat Lab 08/11/19 15:46 Received CULTURE BLOOD [BC] Stat Lab 08/11/19 15:50 Received Blood Culture x2 Reflex Set [OM.PC] Stat Oth 08/11/19 15:15 Ordered Peripheral IV Insertion Adult [OM.PC] Routine Oth 08/11/19 15:15 Ordered Labs: Laboratory Tests 08/11/19 08/11/19 08/11/19 Range/Units 15:46 15:46 15:46 WBC 6.3 (4.0-10.0) x10^3/uL RBC 4.41 L (4.5-6.0) x10^6/uL Hgb 14.1 D (14.0-18.0) g/dL Hct 43.1 (40.0-52.0) % MCV 97.7 H (78.0-93.0) fL MCH 32.0 (26.0-32.0) pg MCHC 32.7 (32.0-36.0) g/dL RDW Coeff of Aren 13.4 (10.0-15.0) % Plt Count 113 L (130-400) x10^3/uL Neut % (Auto) 82.6 H (50.0-80.0) % Lymph % (Auto) 7.8 L (25.0-50.0) % [place] % (Auto) 7.5 (2.0-11.0) % Eos % (Auto) 1.9 (0.0-4.0) % Baso % (Auto) 0.2 (0.2-1.2) % PT 13.4 H (10.0-12.8) SEC INR 1.2 L (2.0-3.5) Sodium (136-145) mmol/L Potassium (3.5-5.1) mmol/L Chloride (98-107) mmol/L Carbon Dioxide (21-32) mmol/L Anion Gap (10-20) mmol/L BUN (7-18) mg/dL Creatinine (0.70-1.30) mg/dL Est Cr Clr Drug Dosing Estimated GFR (MDRD) Glucose (74-106) mg/dL Lactic Acid (0.4-2.0) mmol/L Calcium (8.5-10.1) mg/dL Corrected Calcium (8.5-10.1) mg/dL Magnesium 1.0 L (1.8-2.4) mg/dL Total Bilirubin (0.2-1.0) mg/dL AST (15-37) U/L ALT (16-63) U/L Alkaline Phosphatase (46-116) U/L Troponin I < 0.017 (<=0.056) ng/mL C-Reactive Protein 12.2 H (<=0.9) mg/dL Total Protein (6.4-8.2) g/dL Albumin (3.4-5.0) g/dL Globulin Albumin/Globulin Ratio TSH, Ultra Sensitive 0.432 (0.358-3.74) uIU/mL 08/11/19 08/11/19 Range/Units 15:46 15:46 WBC (4.0-10.0) x10^3/uL RBC (4.5-6.0) x10^6/uL Hgb (14.0-18.0) g/dL Hct (40.0-52.0) % MCV (78.0-93.0) fL MCH (26.0-32.0) pg MCHC (32.0-36.0) g/dL RDW Coeff of Aren (10.0-15.0) % Plt Count (130-400) x10^3/uL Neut % (Auto) (50.0-80.0) % Lymph % (Auto) (25.0-50.0) % [place] % (Auto) (2.0-11.0) % Eos % (Auto) (0.0-4.0) % Baso % (Auto) (0.2-1.2) % PT (10.0-12.8) SEC INR (2.0-3.5) Sodium 138 (136-145) mmol/L Potassium 4.2 (3.5-5.1) mmol/L Chloride 98 (98-107) mmol/L Carbon Dioxide 31 (21-32) mmol/L Anion Gap 13.2 (10-20) mmol/L BUN 15 (7-18) mg/dL Creatinine 1.2 (0.70-1.30) mg/dL Est Cr Clr Drug Dosing TNP Estimated GFR (MDRD) 59 Glucose 92 (74-106) mg/dL Lactic Acid 1.3 (0.4-2.0) mmol/L Calcium 8.8 (8.5-10.1) mg/dL Corrected Calcium 9.28 (8.5-10.1) mg/dL Magnesium (1.8-2.4) mg/dL Total Bilirubin 0.8 (0.2-1.0) mg/dL AST 510 H (15-37) U/L ALT 453 H (16-63) U/L Alkaline Phosphatase 92 (46-116) U/L Troponin I (<=0.056) ng/mL C-Reactive Protein (<=0.9) mg/dL Total Protein 7.6 (6.4-8.2) g/dL Albumin 3.4 (3.4-5.0) g/dL Globulin 4.2 Albumin/Globulin Ratio 0.81 TSH, Ultra Sensitive (0.358-3.74) uIU/mL Meds: Medications Discontinued Medications Generic Name Dose Route Start Last Admin Trade Name Freq PRN Reason Stop Dose Admin Ceftriaxone Sodium 1 gm 08/11/19 16:12 08/11/19 16:38 Rocephin IVPUSH 08/11/19 16:13 1 gm STAT ONE Administration Doxycycline Monohydrate 1 packet 08/11/19 16:48 08/11/19 17:00 Take Home: Doxycycline 100 Mg, 4 Tab Pack PO 08/11/19 16:49 1 packet ONETIME ONE Administration Methylprednisolone Sodium Succinate 125 mg 08/11/19 16:12 08/11/19 16:38 Solu-Medrol IV 08/11/19 16:13 125 mg ONETIME ONE Administration Sodium Chloride 10 ml 08/11/19 15:14 Saline Flush FLUSH ASDIRECTED PRN Keep Vein Open - Radiology Interpretation Free Text/Narrative:: COPD, no evidence of acute infiltrate of recent aspiration Departure - Departure Time of Disposition: 17:00 Disposition: Home, Self-Care 01 Clinical Impression: COPD exacerbation - Discharge Information Instructions: Chronic Obstructive Pulmonary Disease Exacerbation, [id number] , Doxycycline tablets or capsules, Prednisone tablets Referrals: Yasmine Garay DO [Primary Care Provider] - Forms: ED Department Discharge Additional Instructions: Doxycycline 100mg 1 twice daily for 10 days Prednisone 20mg 3 tabs daily for 7 days Follow-up in clinic tomorrow Return to ER if you have worsening discomfort, shortness of breath, or inability to swallow Also, I would advise to you eat a fairly soft diet for the next several weeks. You make have some esophageal inflammation that is contributing to this discomfort as well. Sepsis Event Note - Evaluation Sepsis Screening Result: No Definite Risk - My Orders Last 24 Hours: My Active Orders 08/11/19 15:14 EKG Documentation Completion [RC] STAT 08/11/19 15:15 Blood Culture x2 Reflex Set [OM.PC] Stat Peripheral IV Insertion Adult [OM.PC] Routine 08/11/19 15:46 CULTURE BLOOD [BC] Stat 08/11/19 15:50 CULTURE BLOOD [BC] Stat - Assessment/Plan Last 24 Hours: My Active Orders 08/11/19 15:14 EKG Documentation Completion [RC] STAT 08/11/19 15:15 Blood Culture x2 Reflex Set [OM.PC] Stat Peripheral IV Insertion Adult [OM.PC] Routine 08/11/19 15:46 CULTURE BLOOD [BC] Stat 08/11/19 15:50 CULTURE BLOOD [BC] Stat Plan: Doxycycline 100mg 1 twice daily for 10 days Prednisone 20mg 3 tabs daily for 7 days Follow-up in clinic tomorrow Return to ER if you have worsening discomfort, shortness of breath, or inability to swallow Also, I would advise to you eat a fairly soft diet for the next several weeks. You make have some esophageal inflammation that is contributing to this discomfort as well.
== END 2019-08-11 17:00 | disposition home or self-care (01) ==
LOC: VM.ED 15:09
DX: J44.1 Chronic obstructive pulmonary disease with (acute) exacerbation (principal); Z88.8 Allergy status to other drugs, medicaments and biological substances; Z88.5 Allergy status to narcotic agent; Z79.899 Other long term (current) drug therapy; Z87.891 Personal history of nicotine dependence
CPT/HCPCS: 36415; 71046; 80053; 83605; 83735; 84443; 84484; 85025; 85610; 86140; 87040; 93005; 96374; 96375; 99285; A9270; J0696; J2930; 93010; 99284-GF

== ENCOUNTER 2022-10-10 18:43 | Emergency (ER) | payer MEDICARE, BC ==
[2022-10-10 19:39] LABS: ANION GAP 12.2 mmol/L (5-15); CHLORIDE,CL 102 mmol/L (98-107); ESTIMATED GFR 57 mL/min (>=60); SODIUM,NA 140 mmol/L (136-145)
[2022-10-10] MEDS: Iopamidol 612 MG/ML 100 ML Bottle IVPUSH ONE (20:38)
[2022-10-10] MEDS: fentaNYL 50 MCG/ML SDV IVPUSH ONE (22:05)
[2022-10-10] MEDS: Sodium Chloride 0.9% 1,000 ML IV ONE (22:05)
== END 2022-10-10 23:11 | disposition home or self-care (01) ==
LOC: VM.ED 18:43
DX: K56.600 Partial intestinal obstruction, unspecified as to cause (principal); K21.9 Gastro-esophageal reflux disease without esophagitis; J44.9 Chronic obstructive pulmonary disease, unspecified; Z79.899 Other long term (current) drug therapy; Z88.5 Allergy status to narcotic agent; Z88.8 Allergy status to other drugs, medicaments and biological substances
CPT/HCPCS: 36415; 74177; 80053; 83735; 85025; 85610; 96361; 96374; 99284; 99284-25; J3010; J7030; Q9967

== ENCOUNTER 2022-12-25 08:00 | Emergency (ER) | payer MEDICARE, BC ==
[2022-12-25 08:33] LABS: BASOPHILS PERCENT AUTO 0.2 % (0.2-1.2); EOSINOPHILS ABSOLUTE AUTO 0.2 x10^3/uL (0.0-0.5); EOSINOPHILS PERCENT AUTO 1.3 % (0.0-4.0); HEMATOCRIT 34.1 % (40.0-52.0); HEMOGLOBIN 10.7 g/dL (14.0-18.0); IMMATURE GRAN ABSOLUTE AUTO 0.02 x10^3/uL (0.00-0.07); LYMPHOCYTES ABSOLUTE AUTO 0.7 x10^3/uL (1.0-4.8); LYMPHOCYTES PERCENT AUTO 6.3 % (25.0-50.0); MEAN CORPUSCULAR HEMOGLOBIN 29.6 pg (26.0-32.0); MEAN CORPUSCULAR HGB CONC 31.4 g/dL (32.0-36.0); MEAN CORPUSCULAR VOLUME 94.5 fL (78.0-93.0); MONOCYTES PERCENT AUTO 8.3 % (2.0-11.0); NEUTROPHILS ABSOLUTE AUTO 9.9 x10^3/uL (1.8-7.7); NEUTROPHILS PERCENT AUTO 83.7 % (50.0-80.0); PLATELET COUNT,PLT 107 x10^3/uL (130-400); RED BLOOD CELL COUNT 3.61 x10^6/uL (4.5-6.0); WHITE BLOOD CELL COUNT,WBC 11.8 x10^3/uL (4.0-10.0)
[2022-12-25 08:51] LABS: A/G RATIO 0.78; ALANINE AMINOTRANSFERASE,ALT 18 U/L (16-63); ALBUMIN 2.9 g/dL (3.4-5.0); ALKALINE PHOSPHATASE 68 U/L (46-116); ASPARTATE AMNIOTRANSFERASE,AST 17 U/L (15-37); BILIRUBIN TOTAL 0.8 mg/dL (0.2-1.0); BLOOD UREA NITROGEN,BUN 22 mg/dL (7-18); C-REACTIVE PROTEIN 12.97 mg/dL (<=0.30); CALCIUM 8.8 mg/dL (8.5-10.1); CARBON DIOXIDE,CO2 37 mmol/L (21-32); CHLORIDE,CL 99 mmol/L (98-107); GLUCOSE RANDOM 134 mg/dL (70-99); MAGNESIUM 1.2 mg/dL (1.8-2.4); POTASSIUM,K 4.4 mmol/L (3.5-5.1); PROTEIN TOTAL,TP 6.6 g/dL (6.4-8.2); SODIUM,NA 140 mmol/L (136-145)
[2022-12-25 08:52] LABS: ANION GAP 8.4 mmol/L (5-15); ESTIMATED GFR 78 mL/min (>=60)
[2022-12-25] MEDS: Azithromycin 250 MG Tab PO ONE (09:29)
[2022-12-25] MEDS: cefTRIAXone 1 GM Vial IVPUSH ONE (09:29)
[2022-12-25] MEDS: Magnesium Sulfate/Water 2 GM in Premix Bag 1 BAG IV ONE (09:29)
[2022-12-25 11:44] LABS: APPEARANCE,URINE CLEAR (CLEAR); BILIRUBIN,URINE NEGATIVE (NEGATIVE); COLOR,URINE YELLOW (YELLOW); GLUCOSE,URINE NEGATIVE (NEGATIVE); KETONES,URINE NEGATIVE (NEGATIVE); LEUKOCYTE ESTERASE,URINE NEGATIVE (NEGATIVE); NITRITE,URINE NEGATIVE (NEGATIVE); OCCULT BLOOD,URINE NEGATIVE (NEGATIVE); PH,URINE 5.5 (5.0-8.0); PROTEIN,URINE 30 mg/dL (NEGATIVE); UROBILINOGEN,URINE 0.2 EU/dL (0.2)
[2022-12-25 11:45] LABS: BACTERIA,URINE RARE /HPF (NOT SEEN); MUCUS,URINE FEW /LPF (NOT SEEN); RBC,URINE 0-5 /HPF (NOT SEEN); SQUAMOUS EPITHELIAL CELLS,UR NOT SEEN /HPF (NOT SEEN); WBC,URINE 0-5 /HPF (NOT SEEN)
== END 2022-12-25 12:02 | disposition home or self-care (01) ==
LOC: VM.ED 08:00
DX: J18.9 Pneumonia, unspecified organism (principal); E83.42 Hypomagnesemia; J44.9 Chronic obstructive pulmonary disease, unspecified; K21.9 Gastro-esophageal reflux disease without esophagitis; Z87.891 Personal history of nicotine dependence; Z88.8 Allergy status to other drugs, medicaments and biological substances; Z88.5 Allergy status to narcotic agent; Z79.899 Other long term (current) drug therapy
CPT/HCPCS: 36415; 71046; 80053; 81001; 83605; 83735; 84145; 84484; 85025; 86140; 93005; 96365; 96366; 96375; 99285-25; A9270-GY; J0696; J3475

== ENCOUNTER 2024-05-12 19:03 | Inpatient (IN) | payer MEDICARE, BC ==
[2024-05-12 19:51] LABS: BASOPHILS PERCENT AUTO 0.7 % (0.2-1.2); EOSINOPHILS ABSOLUTE AUTO 0.2 x10^3/uL (0.0-0.5); EOSINOPHILS PERCENT AUTO 3.4 % (0.0-4.0); HEMATOCRIT 39.2 % (40.0-52.0); HEMOGLOBIN 12.8 g/dL (14.0-18.0); IMMATURE GRAN ABSOLUTE AUTO 0.02 x10^3/uL (0.00-0.07); LYMPHOCYTES ABSOLUTE AUTO 0.4 x10^3/uL (1.0-4.8); LYMPHOCYTES PERCENT AUTO 6.4 % (25.0-50.0); MEAN CORPUSCULAR HEMOGLOBIN 33.5 pg (26.0-32.0); MEAN CORPUSCULAR HGB CONC 32.7 g/dL (32.0-36.0); MEAN CORPUSCULAR VOLUME 102.6 fL (78.0-93.0); MONOCYTES ABSOLUTE AUTO 0.7 x10^3/uL (0.0-0.8); MONOCYTES PERCENT AUTO 12.1 % (2.0-11.0); NEUTROPHILS ABSOLUTE AUTO 4.6 x10^3/uL (1.8-7.7); NEUTROPHILS PERCENT AUTO 77.1 % (50.0-80.0); PLATELET COUNT,PLT 121 x10^3/uL (130-400); RED BLOOD CELL COUNT 3.82 x10^6/uL (4.5-6.0); WHITE BLOOD CELL COUNT,WBC 5.9 x10^3/uL (4.0-10.0)
[2024-05-12 20:08] LABS: ALBUMIN 2.8 g/dL (3.4-5.0)
[2024-05-12 20:23] LABS: A/G RATIO 0.82; ALANINE AMINOTRANSFERASE,ALT 19 U/L (16-63); ALKALINE PHOSPHATASE 66 U/L (46-116); ANION GAP 13.2 mmol/L (5-15); ASPARTATE AMNIOTRANSFERASE,AST 22 U/L (15-37); BILIRUBIN TOTAL 0.7 mg/dL (0.2-1.0); BLOOD UREA NITROGEN,BUN 20 mg/dL (7-18); CALCIUM 9.2 mg/dL (8.5-10.1); CARBON DIOXIDE,CO2 29 mmol/L (21-32); CHLORIDE,CL 95 mmol/L (98-107); CREATININE 1.1 mg/dL (0.70-1.30); ESTIMATED GFR 69 mL/min (>=60); GLUCOSE RANDOM 147 mg/dL (70-99); POTASSIUM,K 3.2 mmol/L (3.5-5.1); PROTEIN TOTAL,TP 6.2 g/dL (6.4-8.2); SODIUM,NA 134 mmol/L (136-145)
[2024-05-12] MEDS: Magnesium Chloride 64 MG Tab.ER PO ONE (20:44)
[2024-05-13] MEDS ORDERED: Ondansetron 4 MG Tab.DIS PO PRN (01:03)
[2024-05-13] MEDS ORDERED: Magnesium Hydroxide 400 MG/5 ML Susp 30 ML Cup PO PRN (01:03)
[2024-05-13] MEDS ORDERED: Albuterol/Ipratropium 3.0-0.5 MG/3 ML Neb Soln NEB PRN (01:03)
[2024-05-13] MEDS: Magnesium Sulfate/Water Premix 2 GM in Premix Bag 1 BAG IV ONE ×2 (01:36→08:17)
[2024-05-13] MEDS: Lactated Ringers 1,000 ML IV SCH (01:37)
[2024-05-13 08:13] LABS: BASOPHILS PERCENT AUTO 0.7 % (0.2-1.2); EOSINOPHILS ABSOLUTE AUTO 0.2 x10^3/uL (0.0-0.5); EOSINOPHILS PERCENT AUTO 3.5 % (0.0-4.0); HEMATOCRIT 36.7 % (40.0-52.0); HEMOGLOBIN 12.3 g/dL (14.0-18.0); IMMATURE GRAN ABSOLUTE AUTO 0.03 x10^3/uL (0.00-0.07); LYMPHOCYTES ABSOLUTE AUTO 0.4 x10^3/uL (1.0-4.8); MEAN CORPUSCULAR HEMOGLOBIN 33.8 pg (26.0-32.0); MEAN CORPUSCULAR HGB CONC 33.5 g/dL (32.0-36.0); MEAN CORPUSCULAR VOLUME 100.8 fL (78.0-93.0); MONOCYTES ABSOLUTE AUTO 0.9 x10^3/uL (0.0-0.8); MONOCYTES PERCENT AUTO 15.6 % (2.0-11.0); NEUTROPHILS ABSOLUTE AUTO 3.9 x10^3/uL (1.8-7.7); NEUTROPHILS PERCENT AUTO 71.7 % (50.0-80.0); PLATELET COUNT,PLT 112 x10^3/uL (130-400); RED BLOOD CELL COUNT 3.64 x10^6/uL (4.5-6.0); WHITE BLOOD CELL COUNT,WBC 5.5 x10^3/uL (4.0-10.0)
[2024-05-13] MEDS: Enoxaparin 40 MG/0.4 ML Syringe SUBCUT SCH (08:18)
[2024-05-13 08:28] LABS: CALCIUM 8.9 mg/dL (8.5-10.1); EST CRCL DRUG DOSING (CG) 44.8 mL/min; MAGNESIUM 1.1 mg/dL (1.8-2.4)
[2024-05-13] MEDS ORDERED: Albuterol 0.083% 2.5 MG/3 ML Neb Soln INH PRN (08:50)
[2024-05-13] MEDS ORDERED: Simethicone 80 MG Tab.Chew PO PRN (09:39)
[2024-05-13] MEDS: MAGNESIUM SULFATE IV ONE (10:06)
[2024-05-13] MEDS: WATER IV ONE (10:06)
[2024-05-13] MEDS: Acetaminophen 325 MG Tab PO PRN (10:13)
[2024-05-13] MEDS: predniSONE 20 MG Tab PO SCH (10:16)
[2024-05-13] MEDS: Cholecalciferol (Vitamin D3) 25 MCG Tab PO SCH (10:16)
[2024-05-13] MEDS: Loperamide 2 MG Cap PO SCH (10:17)
[2024-05-13] MEDS: Magnesium Oxide 400 MG Tab PO SCH (10:17)
[2024-05-13] MEDS: buPROPion 150 MG Tab.ER PO SCH (10:17)
[2024-05-13] MEDS: Potassium Chloride 10 MEQ Tab.ER PO SCH (10:18)
[2024-05-13] MEDS: DULoxetine 20 MG Cap PO SCH (10:18)
[2024-05-13] MEDS: Cyanocobalamin (Vitamin B12) 1,000 MCG/ML SDV IM SCH (12:27)
[2024-05-13 13:32] LABS: APPEARANCE,URINE CLEAR (CLEAR); BILIRUBIN,URINE MODERATE (NEGATIVE); COLOR,URINE YELLOW (YELLOW); GLUCOSE,URINE NEGATIVE (NEGATIVE); KETONES,URINE 15 mg/dL (NEGATIVE); LEUKOCYTE ESTERASE,URINE NEGATIVE (NEGATIVE); NITRITE,URINE NEGATIVE (NEGATIVE); OCCULT BLOOD,URINE SMALL (NEGATIVE); PH,URINE 5.5 (5.0-8.0); PROTEIN,URINE NEGATIVE (NEGATIVE); UROBILINOGEN,URINE 0.2 EU/dL (0.2)
[2024-05-13 13:42] LABS: AMORPHOUS SEDIMENT,URINE NOT SEEN; BACTERIA,URINE RARE /HPF (NOT SEEN); HYALINE CASTS,URINE FEW; MUCUS,URINE NOT SEEN /LPF (NOT SEEN); RBC,URINE 0-5 /HPF (NOT SEEN); SQUAMOUS EPITHELIAL CELLS,UR FEW /HPF (NOT SEEN); WBC,URINE NOT SEEN /HPF (NOT SEEN)
[2024-05-13 13:44] LABS: MAGNESIUM 2.9 mg/dL (1.8-2.4); POTASSIUM,K 3.5 mmol/L (3.5-5.1)
[2024-05-14] MEDS ORDERED: FLUTICASONE INH SCH (09:00)
[2024-05-14] MEDS ORDERED: VILANTER INH SCH (09:00)
[2024-05-14] MEDS ORDERED: UMECLIDIN INH SCH (09:00)
== END 2024-05-13 15:37 | disposition home or self-care (01) | DRG 71 ==
LOC: VM.ED 19:03 → VM.MS 22:22
PROVIDERS: ADMIT Nurse Practitioner Family; ATTEND Internal Medicine
DX: R41.0 Disorientation, unspecified (principal); G93.41 Metabolic encephalopathy; E87.1 Hypo-osmolality and hyponatremia; K50.90 Crohn's disease, unspecified, without complications; J96.11 Chronic respiratory failure with hypoxia; E83.42 Hypomagnesemia; H91.90 Unspecified hearing loss, unspecified ear; J44.9 Chronic obstructive pulmonary disease, unspecified; K21.9 Gastro-esophageal reflux disease without esophagitis; M35.3 Polymyalgia rheumatica; F32.A Depression, unspecified; F10.10 Alcohol abuse, uncomplicated; S09.90XA Unspecified injury of head, initial encounter; E86.0 Dehydration; E87.6 Hypokalemia; L40.9 Psoriasis, unspecified; E53.8 Deficiency of other specified B group vitamins; N18.30 Chronic kidney disease, stage 3 unspecified; D63.1 Anemia in chronic kidney disease; Z88.8 Allergy status to other drugs, medicaments and biological substances; Z79.899 Other long term (current) drug therapy; Z79.51 Long term (current) use of inhaled steroids; Z98.49 Cataract extraction status, unspecified eye; Z90.49 Acquired absence of other specified parts of digestive tract; Z98.890 Other specified postprocedural states; Z99.81 Dependence on supplemental oxygen; Z93.3 Colostomy status
CPT/HCPCS: 36415; 70450; 80048; 80053; 81001; 82140; 83735; 84132; 85025; 87428-QW; 97161-GP; 97165-GO; 99223; 99223-GT; 99239; 99239-GT; A9270-GY; J1650; J3420; J3475; J7120; J7512; Q3014

== ENCOUNTER 2024-08-20 14:39 | Inpatient (IN) | payer MEDICARE, BC ==
[2024-08-20] MEDS ORDERED: Sodium Chloride 0.9% 10 ML Syringe FLUSH PRN (14:44)
[2024-08-20 15:02] LABS: BASOPHILS PERCENT AUTO 0.3 % (0.2-1.2); EOSINOPHILS ABSOLUTE AUTO 0.2 x10^3/uL (0.0-0.5); EOSINOPHILS PERCENT AUTO 1.7 % (0.0-4.0); HEMOGLOBIN 12.1 g/dL (14.0-18.0); IMMATURE GRAN ABSOLUTE AUTO 0.04 x10^3/uL (0.00-0.07); LYMPHOCYTES ABSOLUTE AUTO 0.8 x10^3/uL (1.0-4.8); MEAN CORPUSCULAR HEMOGLOBIN 34.2 pg (26.0-32.0); MEAN CORPUSCULAR HGB CONC 33.6 g/dL (32.0-36.0); MEAN CORPUSCULAR VOLUME 101.7 fL (78.0-93.0); MONOCYTES ABSOLUTE AUTO 0.9 x10^3/uL (0.0-0.8); MONOCYTES PERCENT AUTO 10.2 % (2.0-11.0); NEUTROPHILS ABSOLUTE AUTO 7.1 x10^3/uL (1.8-7.7); NEUTROPHILS PERCENT AUTO 78.4 % (50.0-80.0); PLATELET COUNT,PLT 96 x10^3/uL (130-400); RED BLOOD CELL COUNT 3.54 x10^6/uL (4.5-6.0); WHITE BLOOD CELL COUNT,WBC 9.1 x10^3/uL (4.0-10.0)
[2024-08-20 15:04] LABS: HCO3 VENOUS,POC 25 mmol/L (22-29); O2 SATURATION VENOUS,POC 66 %; PCO2 VENOUS,POC 44 mmHg (41-51); PH VENOUS,POC 7.37 pH (7.32-7.43); PO2 VENOUS,POC 35 mmHg
[2024-08-20 15:22] LABS: INR 1.3 (0.9-1.1); PROTHROMBIN TIME 13.6 SEC (9.6-12.0); PTT,PARTIAL THROMBOPLSTIN TIME 23.3 SEC (23.5-33.2)
[2024-08-20 15:29] LABS: ALANINE AMINOTRANSFERASE,ALT 48 U/L (16-63); ALBUMIN 3.2 g/dL (3.4-5.0); ALKALINE PHOSPHATASE 99 U/L (46-116); ASPARTATE AMNIOTRANSFERASE,AST 49 U/L (15-37); BILIRUBIN TOTAL 1.2 mg/dL (0.2-1.0); BLOOD UREA NITROGEN,BUN 25 mg/dL (7-18); C-REACTIVE PROTEIN 0.98 mg/dL (<=0.50); CARBON DIOXIDE,CO2 31 mmol/L (21-32); CHLORIDE,CL 97 mmol/L (98-107); CREATININE 1.3 mg/dL (0.70-1.30); GLUCOSE RANDOM 77 mg/dL (70-99); POTASSIUM,K 4.4 mmol/L (3.5-5.1); PRO B-TYPE NATRIUR PEPT,BNPPRO 1689 pg/mL (<=450); PROTEIN TOTAL,TP 6.4 g/dL (6.4-8.2); SODIUM,NA 135 mmol/L (136-145)
[2024-08-20 15:30] LABS: ANION GAP 11.4 mmol/L (5-15); ESTIMATED GFR 56 mL/min (>=60)
[2024-08-20 15:32] LABS: ETHANOL BLOOD MEDICAL < 3 mg/dL (0-3); LACTIC ACID 1.7 mmol/L (0.4-2.0)
[2024-08-20] MEDS ORDERED: Albuterol/Ipratropium 3.0-0.5 MG/3 ML Neb Soln NEB PRN (17:43)
[2024-08-20] MEDS ORDERED: Melatonin 3 MG Tab PO PRN (17:43)
[2024-08-20] MEDS ORDERED: Acetaminophen 325 MG Tab PO PRN (17:43)
[2024-08-20] MEDS ORDERED: oxyCODONE 5 MG Tab PO PRN (17:43)
[2024-08-20] MEDS: methylPREDNISolone Sodium Succinate 125 MG/2 ML SDV IM ONE (17:44)
[2024-08-20] MEDS: cefTRIAXone 1 GM, Lidocaine 1% 2.1 ML IM ONE (17:44)
[2024-08-20] MEDS: predniSONE 20 MG Tab PO ONE (17:46)
[2024-08-20] MEDS: Amoxicillin/Clavulanate K 875-125 MG Tab PO ONE (17:46)
[2024-08-20] MEDS: Doxycycline Monohydrate 100 MG Cap PO ONE (17:46)
[2024-08-20] MEDS ORDERED: Simethicone 80 MG Tab.Chew PO PRN ×2 (17:53→18:53)
[2024-08-20] MEDS: Amoxicillin/Clavulanate K 875-125 MG Tab PO SCH (21:05)
[2024-08-20] MEDS: Doxycycline Monohydrate 100 MG Cap PO SCH (21:05)
[2024-08-21 06:52] LABS: APPEARANCE,URINE CLEAR (CLEAR); BILIRUBIN,URINE NEGATIVE (NEGATIVE); COLOR,URINE YELLOW (YELLOW); GLUCOSE,URINE NEGATIVE (NEGATIVE); KETONES,URINE 15 mg/dL (NEGATIVE); LEUKOCYTE ESTERASE,URINE NEGATIVE (NEGATIVE); NITRITE,URINE NEGATIVE (NEGATIVE); OCCULT BLOOD,URINE MODERATE (NEGATIVE); PH,URINE 5.5 (5.0-8.0); PROTEIN,URINE NEGATIVE (NEGATIVE); UROBILINOGEN,URINE 0.2 EU/dL (0.2)
[2024-08-21 07:02] LABS: RBC,URINE 0-5 /HPF (NOT SEEN)
[2024-08-21 07:03] LABS: BACTERIA,URINE RARE /HPF (NOT SEEN); SQUAMOUS EPITHELIAL CELLS,UR RARE /HPF (NOT SEEN); WBC,URINE NOT SEEN /HPF (NOT SEEN)
[2024-08-21] MEDS: Formoterol/Mometasone 100-5 MCG 8.8 GM Inhaler INH SCH (07:12)
[2024-08-21] MEDS: Tiotropium Bromide 4 GM Inhalation Spray (2.5mcg/1 dose; 10 doses) INH SCH (07:13)
[2024-08-21] MEDS: Loperamide 2 MG Cap PO SCH (09:31)
[2024-08-21] MEDS: Cholecalciferol (Vitamin D3) 25 MCG Tab PO SCH (09:31)
[2024-08-21] MEDS: DULoxetine 20 MG Cap PO SCH (09:32)
[2024-08-21] MEDS: Omeprazole 20 MG Cap.CR PO SCH (09:32)
[2024-08-21] MEDS: predniSONE 20 MG Tab PO SCH (09:32)
[2024-08-21] MEDS: buPROPion 150 MG Tab.ER PO SCH (09:32)
[2024-08-21] MEDS: Cyanocobalamin (Vitamin B12) 1,000 MCG/ML SDV IM SCH (16:10)
[2024-08-21] MEDS: Magnesium Oxide 400 MG Tab PO SCH (16:12)
[2024-08-22] MEDS: QUEtiapine 25 MG Tab PO SCH (21:49)
[2024-08-23] MEDS: Ondansetron 4 MG Tab.DIS PO PRN (07:40)
== END 2024-08-24 12:59 | disposition swing bed (61) | DRG 193 ==
LOC: VM.ED 14:39 → VM.MS 16:28
PROVIDERS: ADMIT Internal Medicine; ATTEND Internal Medicine
DX: J18.9 Pneumonia, unspecified organism (principal); J96.21 Acute and chronic respiratory failure with hypoxia; J44.1 Chronic obstructive pulmonary disease with (acute) exacerbation; J96.12 Chronic respiratory failure with hypercapnia; E46 Unspecified protein-calorie malnutrition; K50.918 Crohn's disease, unspecified, with other complication; J44.0 Chronic obstructive pulmonary disease with (acute) lower respiratory infection; Z66 Do not resuscitate; H91.90 Unspecified hearing loss, unspecified ear; K21.9 Gastro-esophageal reflux disease without esophagitis; F32.A Depression, unspecified; E83.42 Hypomagnesemia; E53.8 Deficiency of other specified B group vitamins; I48.0 Paroxysmal atrial fibrillation; M12.9 Arthropathy, unspecified; M35.3 Polymyalgia rheumatica; Z87.891 Personal history of nicotine dependence; Z99.81 Dependence on supplemental oxygen; Z79.01 Long term (current) use of anticoagulants; Z79.899 Other long term (current) drug therapy; Z98.890 Other specified postprocedural states; Z90.49 Acquired absence of other specified parts of digestive tract; Z98.49 Cataract extraction status, unspecified eye; Z88.8 Allergy status to other drugs, medicaments and biological substances
CPT/HCPCS: 70450; 71045; 80053; 80307; 81001; 82140; 82803; 83605; 83735; 83880; 84443; 84484; 85025; 85610; 85730; 86140; 87040; 87428-QW; 92610-GN; 93005; 93010; 94640; 94760; 97116-GP; 97161-GP; 97166-GO; 97530-GO; 97535-GO; 99284; 99285; A9270-GY; J3420; J7512

== ENCOUNTER 2024-08-24 08:44 | Inpatient (IN) | payer MEDICARE, BC ==
[2024-08-24] MEDS ORDERED: Sodium Chloride 0.9% 10 ML Syringe FLUSH PRN (11:44)
[2024-08-24] MEDS ORDERED: oxyCODONE 5 MG Tab PO PRN (11:44)
[2024-08-24] MEDS ORDERED: Albuterol/Ipratropium 3.0-0.5 MG/3 ML Neb Soln NEB PRN (11:44)
[2024-08-24] MEDS ORDERED: Melatonin 3 MG Tab PO PRN (11:44)
[2024-08-24] MEDS: Magnesium Oxide 400 MG Tab PO SCH (15:31)
[2024-08-24] MEDS: Amoxicillin/Clavulanate K 875-125 MG Tab PO SCH (21:34)
[2024-08-24] MEDS: Formoterol/Mometasone 100-5 MCG 8.8 GM Inhaler INH SCH (21:34)
[2024-08-24] MEDS: QUEtiapine 25 MG Tab PO SCH (21:34)
[2024-08-24] MEDS: Doxycycline Monohydrate 100 MG Cap PO SCH (21:34)
[2024-08-25] MEDS: Tiotropium Bromide 4 GM Inhalation Spray (2.5mcg/1 dose; 10 doses) INH SCH (07:15)
[2024-08-25] MEDS: Cholecalciferol (Vitamin D3) 25 MCG Tab PO SCH (08:41)
[2024-08-25] MEDS: buPROPion 150 MG Tab.ER PO SCH (08:41)
[2024-08-25] MEDS: predniSONE 20 MG Tab PO SCH (08:41)
[2024-08-25] MEDS: Omeprazole 20 MG Cap.CR PO SCH (08:42)
[2024-08-25] MEDS: DULoxetine 20 MG Cap PO SCH (08:42)
[2024-08-25] MEDS ORDERED: Loperamide 2 MG Cap PO SCH (09:00)
[2024-08-25] MEDS: Apixaban 2.5 MG Tab PO SCH (09:18)
[2024-08-25] MEDS: Carvedilol 3.125 MG Tab PO SCH (09:18)
[2024-08-25] MEDS: Acetaminophen 325 MG Tab PO PRN (14:30)
[2024-08-25] MEDS: Ondansetron 4 MG Tab.DIS PO PRN (14:31)
[2024-08-26] MEDS ORDERED: oxyCODONE 5 MG Tab PO PRN (07:32)
[2024-08-26] MEDS: Simethicone 80 MG Tab.Chew PO PRN (12:27)
[2024-08-27 18:43] LABS: BASOPHILS PERCENT AUTO 0.1 % (0.2-1.2); EOSINOPHILS ABSOLUTE AUTO 0.1 x10^3/uL (0.0-0.5); EOSINOPHILS PERCENT AUTO 0.4 % (0.0-4.0); HEMATOCRIT 29.4 % (40.0-52.0); HEMOGLOBIN 9.3 g/dL (14.0-18.0); IMMATURE GRAN ABSOLUTE AUTO 0.13 x10^3/uL (0.00-0.07); LYMPHOCYTES ABSOLUTE AUTO 0.6 x10^3/uL (1.0-4.8); LYMPHOCYTES PERCENT AUTO 3.1 % (25.0-50.0); MEAN CORPUSCULAR HEMOGLOBIN 34.2 pg (26.0-32.0); MEAN CORPUSCULAR HGB CONC 31.6 g/dL (32.0-36.0); MEAN CORPUSCULAR VOLUME 108.1 fL (78.0-93.0); MONOCYTES ABSOLUTE AUTO 2.2 x10^3/uL (0.0-0.8); MONOCYTES PERCENT AUTO 11.4 % (2.0-11.0); NEUTROPHILS PERCENT AUTO 84.3 % (50.0-80.0); RED BLOOD CELL COUNT 2.72 x10^6/uL (4.5-6.0); WHITE BLOOD CELL COUNT,WBC 18.9 x10^3/uL (4.0-10.0)
[2024-08-27 18:52] LABS: PLATELET COUNT,PLT 89 x10^3/uL (130-400)
[2024-08-27 18:53] LABS: INR 1.1 (0.9-1.1); PROTHROMBIN TIME 11.6 SEC (9.6-12.0)
[2024-08-27] MEDS: Pantoprazole 40 MG Tab.CR PO SCH (18:54)
[2024-08-27 18:58] LABS: A/G RATIO 0.78; ALBUMIN 2.5 g/dL (3.4-5.0); BILIRUBIN TOTAL 0.6 mg/dL (0.2-1.0); CALCIUM 9.4 mg/dL (8.5-10.1); EST CRCL DRUG DOSING (CG) 20.72 mL/min; MAGNESIUM 1.8 mg/dL (1.8-2.4); PROTEIN TOTAL,TP 5.7 g/dL (6.4-8.2)
[2024-08-28 07:08] LABS: HEMATOCRIT 26.9 % (40.0-52.0); HEMOGLOBIN 8.4 g/dL (14.0-18.0); MEAN CORPUSCULAR HEMOGLOBIN 34.4 pg (26.0-32.0); MEAN CORPUSCULAR HGB CONC 31.2 g/dL (32.0-36.0); MEAN CORPUSCULAR VOLUME 110.2 fL (78.0-93.0); PLATELET COUNT,PLT 80 x10^3/uL (130-400); RED BLOOD CELL COUNT 2.44 x10^6/uL (4.5-6.0)
[2024-08-28 07:12] LABS: WHITE BLOOD CELL COUNT,WBC 25.9 x10^3/uL (4.0-10.0)
[2024-08-28 07:35] LABS: BAND PERCENT MAN 3 % (0-6); LYMPHOCYTES ABSOLUTE MAN 0.5 x10^3/uL (1.0-4.8); LYMPHOCYTES PERCENT MAN 2 % (25-50); MONOCYTES ABSOLUTE MAN 3.6 x10^3/uL (0.0-0.8); MONOCYTES PERCENT MAN 14 % (2-11); NEUTROPHILS ABSOLUTE MAN 21.8 x10^3/uL (1.8-7.7); SEG NEUTROPHILS PERCENT MAN 81 % (50-80)
[2024-08-28 07:36] LABS: HYPOCHROMASIA 1+ SLIGHT; PLATELET COUNT ESTIMATE DECREASED
[2024-08-28] MEDS ORDERED: Sodium Chloride 0.9% 1,000 ML IV SCH (08:15)
[2024-08-28] MEDS: QUEtiapine 25 MG Tab PO SCH (08:27)
[2024-08-28] MEDS: Levofloxacin 250 MG Tab PO SCH (11:24)
[2024-09-20] MEDS ORDERED: Cyanocobalamin (Vitamin B12) 1,000 MCG/ML SDV IM SCH (13:00)
== END 2024-08-28 12:05 | disposition home or self-care (01) | DRG 947 ==
LOC: VM.MS 11:46
PROVIDERS: ADMIT Physician Assistant; ATTEND Internal Medicine
DX: R53.81 Other malaise (principal); E43 Unspecified severe protein-calorie malnutrition; G93.41 Metabolic encephalopathy; J18.9 Pneumonia, unspecified organism; J96.21 Acute and chronic respiratory failure with hypoxia; K92.2 Gastrointestinal hemorrhage, unspecified; N17.9 Acute kidney failure, unspecified; J44.1 Chronic obstructive pulmonary disease with (acute) exacerbation; J44.0 Chronic obstructive pulmonary disease with (acute) lower respiratory infection; I82.403 Acute embolism and thrombosis of unspecified deep veins of lower extremity, bilateral; F05 Delirium due to known physiological condition; Z68.1 Body mass index [BMI] 19.9 or less, adult; E86.0 Dehydration; D64.9 Anemia, unspecified; H91.90 Unspecified hearing loss, unspecified ear; I48.91 Unspecified atrial fibrillation; K21.9 Gastro-esophageal reflux disease without esophagitis; F32.A Depression, unspecified; R41.0 Disorientation, unspecified; I48.0 Paroxysmal atrial fibrillation; E83.42 Hypomagnesemia; Z66 Do not resuscitate; F39 Unspecified mood [affective] disorder; D53.9 Nutritional anemia, unspecified; Z79.899 Other long term (current) drug therapy; Z79.1 Long term (current) use of non-steroidal anti-inflammatories (NSAID); Z79.51 Long term (current) use of inhaled steroids; Z88.5 Allergy status to narcotic agent; Z88.8 Allergy status to other drugs, medicaments and biological substances; Z98.49 Cataract extraction status, unspecified eye; Z90.89 Acquired absence of other organs; Z90.49 Acquired absence of other specified parts of digestive tract; Z98.890 Other specified postprocedural states; Z86.711 Personal history of pulmonary embolism; Z86.73 Personal history of transient ischemic attack (TIA), and cerebral infarction without residual deficits
CPT/HCPCS: 36415; 80053; 83690; 83735; 85025; 85610; 94640; 97535-GO; A9270-GY; J7512

== ENCOUNTER 2024-08-28 08:02 | Inpatient (IN) | payer MEDICARE, BC ==
[2024-08-28] MEDS ORDERED: Ondansetron 4 MG Tab.DIS PO PRN (17:30)
[2024-08-28] MEDS ORDERED: Melatonin 3 MG Tab PO PRN (17:30)
[2024-08-28] MEDS ORDERED: Sodium Chloride 0.9% 10 ML Syringe FLUSH PRN (17:30)
[2024-08-28] MEDS ORDERED: Loperamide 2 MG Cap PO SCH (17:30)
[2024-08-28] MEDS ORDERED: Albuterol/Ipratropium 3.0-0.5 MG/3 ML Neb Soln NEB PRN (17:30)
[2024-08-28] MEDS ORDERED: Simethicone 80 MG Tab.Chew PO PRN (17:30)
[2024-08-28] MEDS ORDERED: Acetaminophen 325 MG Tab PO PRN (17:30)
[2024-08-28] MEDS ORDERED: Sodium Chloride 0.9% 1,000 ML IV SCH (17:30)
[2024-08-28] MEDS ORDERED: oxyCODONE 5 MG Tab PO PRN (17:30)
[2024-08-28] MEDS: Carvedilol 3.125 MG Tab PO SCH (18:01)
[2024-08-28] MEDS: Magnesium Oxide 400 MG Tab PO SCH (18:01)
[2024-08-28] MEDS: Morphine Oral Concentrate 20 MG/ML 30 ML Bottle SL PRN (18:52)
[2024-08-28] MEDS ORDERED: QUEtiapine 25 MG Tab PO PRN (21:49)
[2024-08-28] MEDS: Formoterol/Mometasone 100-5 MCG 8.8 GM Inhaler INH SCH (22:29)
[2024-08-28] MEDS: QUEtiapine 25 MG Tab PO SCH (22:30)
[2024-08-29] MEDS: Levofloxacin 250 MG Tab PO SCH (06:21)
[2024-08-29] MEDS: Tiotropium Bromide 4 GM Inhalation Spray (2.5mcg/1 dose; 10 doses) INH SCH (06:21)
[2024-08-29] MEDS ORDERED: Omeprazole 20 MG Cap.CR PO SCH (09:00)
[2024-08-29] MEDS: QUEtiapine 25 MG Tab PO SCH (10:24)
[2024-08-29] MEDS: buPROPion 150 MG Tab.ER PO SCH (10:27)
[2024-08-29] MEDS: DULoxetine 20 MG Cap PO SCH (10:27)
[2024-08-29] MEDS: Pantoprazole 40 MG Tab.CR PO SCH (10:40)
[2024-08-29] MEDS: Cholecalciferol (Vitamin D3) 25 MCG Tab PO SCH (10:41)
[2024-08-29] MEDS ORDERED: OLANZapine 10 MG Vial IM PRN (14:01)
[2024-08-29] MEDS ORDERED: OLANZapine 5 MG Tab.DIS PO PRN (14:03)
[2024-08-29] MEDS ORDERED: Menthol/Zinc Oxide Ointment 3.5 GM Tube TOP PRN (14:09)
[2024-08-29] MEDS ORDERED: Lidocaine 2% Viscous Solution 15 ML UD PO PRN (14:09)
[2024-08-29] MEDS ORDERED: VISCOUS PO PRN (14:19)
[2024-08-29] MEDS ORDERED: LIDOCAINE 2% PO PRN (14:19)
[2024-08-29] MEDS: OLANZapine 5 MG Tab.DIS PO ONE (14:19)
[2024-08-29] MEDS: Morphine Oral Concentrate 20 MG/ML 30 ML Bottle SL SCH (15:54)
[2024-08-30] MEDS: Morphine Oral Concentrate 20 MG/ML 30 ML Bottle SL PRN (12:12)
[2024-08-30] MEDS ORDERED: Morphine Oral Concentrate 20 MG/ML 30 ML Bottle SL SCH (16:00)
[2024-09-20] MEDS ORDERED: Cyanocobalamin (Vitamin B12) 1,000 MCG/ML SDV IM SCH (13:00)
== END 2024-08-30 14:00 | disposition swing bed (61) | DRG 377 ==
LOC: VM.MS 08:02
PROVIDERS: ADMIT Internal Medicine; ATTEND Internal Medicine
DX: K92.2 Gastrointestinal hemorrhage, unspecified (principal); E43 Unspecified severe protein-calorie malnutrition; G93.41 Metabolic encephalopathy; D62 Acute posthemorrhagic anemia; F05 Delirium due to known physiological condition; N17.9 Acute kidney failure, unspecified; K50.90 Crohn's disease, unspecified, without complications; Z68.1 Body mass index [BMI] 19.9 or less, adult; Z51.5 Encounter for palliative care; Z66 Do not resuscitate; J44.9 Chronic obstructive pulmonary disease, unspecified; I48.91 Unspecified atrial fibrillation; F32.A Depression, unspecified; M35.3 Polymyalgia rheumatica; K21.9 Gastro-esophageal reflux disease without esophagitis; H91.90 Unspecified hearing loss, unspecified ear; E86.0 Dehydration; T45.515A Adverse effect of anticoagulants, initial encounter; E83.42 Hypomagnesemia; R91.8 Other nonspecific abnormal finding of lung field; Z93.3 Colostomy status; Z88.8 Allergy status to other drugs, medicaments and biological substances; Z79.2 Long term (current) use of antibiotics; Z79.51 Long term (current) use of inhaled steroids; Z79.899 Other long term (current) drug therapy; Z98.49 Cataract extraction status, unspecified eye; Z90.89 Acquired absence of other organs; Z90.49 Acquired absence of other specified parts of digestive tract; Z86.711 Personal history of pulmonary embolism; Z86.718 Personal history of other venous thrombosis and embolism
CPT/HCPCS: A9270-GY

== ENCOUNTER 2024-08-30 10:52 | Inpatient (IN) | payer MEDICARE, BC ==
[2024-08-30] MEDS ORDERED: Albuterol/Ipratropium 3.0-0.5 MG/3 ML Neb Soln NEB PRN (16:52)
[2024-08-30] MEDS ORDERED: Ondansetron 4 MG Tab.DIS PO PRN (16:52)
[2024-08-30] MEDS ORDERED: Menthol/Zinc Oxide Ointment 3.5 GM Tube TOP PRN (16:52)
[2024-08-30] MEDS ORDERED: OLANZapine 5 MG Tab.DIS PO PRN (16:52)
[2024-08-30] MEDS ORDERED: OLANZapine 10 MG Vial IM PRN (16:52)
[2024-08-30] MEDS ORDERED: Lidocaine 2% Viscous Solution 15 ML UD PO PRN (16:52)
[2024-08-30] MEDS ORDERED: Loperamide 2 MG Cap PO PRN (16:52)
[2024-08-30] MEDS: Morphine Oral Concentrate 20 MG/ML 30 ML Bottle SL PRN (18:05)
[2024-08-31] MEDS ORDERED: Morphine Oral Concentrate 20 MG/ML 30 ML Bottle SL SCH
== END 2024-08-30 22:55 | disposition expired | DRG 951 ==
LOC: VM.MS 14:10
PROVIDERS: ADMIT Internal Medicine; ATTEND Internal Medicine
DX: Z51.5 Encounter for palliative care (principal); K90.829 Short bowel syndrome, unspecified; Z66 Do not resuscitate; I95.9 Hypotension, unspecified; F32.A Depression, unspecified; E86.0 Dehydration; E83.42 Hypomagnesemia; R91.8 Other nonspecific abnormal finding of lung field; H54.7 Unspecified visual loss; K21.9 Gastro-esophageal reflux disease without esophagitis; H91.90 Unspecified hearing loss, unspecified ear; I48.91 Unspecified atrial fibrillation; Z88.8 Allergy status to other drugs, medicaments and biological substances; Z79.51 Long term (current) use of inhaled steroids; Z79.899 Other long term (current) drug therapy; Z90.49 Acquired absence of other specified parts of digestive tract; Z98.49 Cataract extraction status, unspecified eye; Z98.890 Other specified postprocedural states; Z90.89 Acquired absence of other organs